=== PATIENT | male | born 1960 | race Caucasian/White ===

== ENCOUNTER 2020-11-16 15:38 | Inpatient (IN) ==
[2020-11-16] MEDS ORDERED: dexAMETHasone**PF** 10 MG/ML VIAL IV ONE (16:32)
[2020-11-16 16:45] LABS: Hematocrit (blood only) 39.5 % (42-52); Hemoglobin 14.2 g/dL (14.0-18.0); Mean Corpuscular Hemoglobin 31.3 pg (25-34); Mean Corpuscular Hgb Conc 35.9 g/dL (32-36); Platelet Count 162 K/uL (130-400); RDW Coefficient of Variation 13.1 % (11.5-14.5); RDW Standard Deviation 41.8 fL (36.4-46.3); Red Blood Count 4.54 M/uL (4.7-6.1)
[2020-11-16] MEDS ORDERED: SODIUM CHLORIDE 0.9% 1000ML 1,000 ML IV SCH (16:45)
[2020-11-16 16:56] LABS: D Dimer 270 ug/L FEU (0-500)
[2020-11-16 17:05] LABS: Alanine Aminotransferase 111 U/L (12-78); Albumin Globulin Ratio 0.8 (0.9-2); Alkaline Phosphatase 128 U/L (45-117); Aspartate Aminotransferase 112 U/L (15-37); BUN Creatinine Ratio 22.6 (10-20); Bilirubin,Total 0.5 mg/dl (0.2-1); Blood Urea Nitrogen 24 mg/dl (7-18); Calcium 8.4 mg/dl (8.5-10.1); Carbon Dioxide 18 mmol/L (21-32); Chloride 105 mmol/L (98-107); Creatinine Clr Calc Pharmacy 94.6 ml/min; Est GFR (African American) 88.4 ml/min; Est GFR (Non-African American) 76.2 ml/min; Globulin 3.8 gm/dl (2.5-4.0); Glucose 314 mg/dl (70-99); Potassium 4.7 mmol/L (3.5-5.1); Sodium 131 mmol/L (136-145); Total Protein 6.8 gm/dl (6.4-8.2); Troponin I < 0.015 ng/ml (0-0.045)
[2020-11-16 17:12] LABS: Immature Granulocytes # (auto) 0.03 K/uL (0.00-0.02); Immature Granulocytes % (auto) 0.6 %; Lymphocytes # (auto) 0.64 K/uL (1.2-3.4); Lymphocytes % (auto) 13.1 %; Monocytes # (auto) 0.76 K/uL (0.11-0.59); Monocytes % (auto) 15.5 %; Neutrophils # (auto) 3.47 K/uL (1.4-6.5); Neutrophils % (auto) 70.8 %; RBC Morphology Unremarkable
--- NOTE | 2020-11-16 17:42 | XRay Report ---
XR chest 1V portable CLINICAL HISTORY: Dyspnea COMPARISON STUDY: No previous studies for comparison. FINDINGS: Lung volumes are mildly diminished. There is no pneumothorax or pleural effusion. Mild to m oderate bilateral airspace opacities are present. There are postoperative findings within the left sh oulder. Cardiac size is at the upper limits of normal. Pulmonary vascularity is normal. IMPRESSION: Mild to moderate bilateral airspace opacities which favor an infectious process such as viral pneumonia. Radiographic follow-up to ensure resolution is recommended. ACT 112: Negative or not required by law. Electronically signed by: Sincere Carbone M.D. 11/16/2020 5:40 PM
[2020-11-16] MEDS ORDERED: NovoLIN-R INSULIN PER UNIT CHARGE IV STA (18:09)
--- NOTE | 2020-11-16 18:42 | History & Physical Report ---
Date of Service November 16, 2020 Assessment & Plan (1) COVID-19: Plan: Please refer to attending addendum and physical exam as I did not to see the patient in person due to COVID-19 positive. I interviewed the patient via phone. - COVID-19 positive, symptomatic since 11/08, tested positive as outpatient on 11/12 - Procalcitonin not obtained - Lymphocytes 0.64, neutrophils 3.47 - CXR reviewed: Mild to moderate bilateral airspace opacities which favor an infectious process such as viral pneumonia. Radiographic follow-up to ensure resolution is recommended. - O2 sats 94% on 2 L via NC, & on room air - WBC - Decadron 6 mg IV daily. If pt needs convalescent plasma then will ask attending to obtain consent. Does not qualify for remdesivir use as he is on symptom day #8. - Was not vaccinated, but plans on obtaining vaccination after 90 days post hospitalization (2) Pneumonia due to 2019 novel coronavirus: Plan: -As above (3) DM II (diabetes mellitus, type II), controlled: Plan: -Check A1C with a.m. labs, glucose over 300 upon admission, holding [employer] glimepiride and Metformin -ISS with Accu-Cheks ACHS -Heart healthy/diabetic diet -Glycemic pharmacy consulted with use of Decadron for COVID-19 pneumonia as above (4) HTN (hypertension): Plan: -Continue ramipril, baby aspirin (5) Elevated transaminase level: Plan: -Elevated liver functions, AST = 112, ALT = 111, alk phos = 128, follow with a.m. labs, likely secondary to acute inflammatory response (6) Hyponatremia: Plan: - 131 on admission, follow with repeat labs at 2200, will order NSS at 125 ml/hr for now DVT PPx: - teds, scds CODE: Full code Dispo: From home, likely to remain in the hospital x 2 days History of Present Illness Primary Care Provider: Quentin Andrea MD This is a 60 yo M with PMHx of HTN, HLD, DM II who presents with severe cough, fever with max temp of 101, wheezing, shortness of breath which has progressively gotten worse. Pt reports he felt sick last night, and did not go to work on Wednesday. He had swab at an acute care clinic last Wednesday night and found positive on Wednesday morning. Since then he has used mucinex, tylenol, and didn't find any relief. He reports having poor appetite, and had some nausea and vomiting on Wednesday. He also reports having diarrhea x 2 days. He is drinking fluids without any difficulty. He reports did not get vaccinated because of all the information on the new and felt hesitant. He is unsure where he caught the virus from. Pt denies recent travel. His is currently symptomatic as well, and here in the ER for admission as well. Allergies Allergy/AdvReac Type Severity Reaction Status Date / Time No Known Allergies Allergy Unverified 11/16/20 17:46 Home Medications Medication Instructions Recorded Confirmed Type aspirin 81 mg tablet,delayed 81 mg PO DAILY 11/16/20 11/16/20 History release glimepiride 2 mg tablet 2 mg PO DAILY 11/16/20 11/16/20 History metformin 500 mg tablet 500 mg PO BID 11/16/20 11/16/20 History ramipril 5 mg capsule 5 mg PO DAILY 11/16/20 11/16/20 History Past Med/Surg History Social History Smoking Status: Never smoker Review of Systems Review of Systems: Constitutional: +fever, sweats and chills Eyes: No diplopia, no worsening or blurred vision ENT: normal hearing, no trouble swallowing Respiratory: + dry cough, wheezing, dyspnea at rest and on exertion Cardiovascular: No chest pain, tightness or palpitations Abdomen: No pain, + nausea, + vomiting, +diarrhea, no constipation Musculoskeletal: No joint pain, calf pain, swelling Neurologic: No weakness, numbness/tingling, or balance problems Psychiatric: No anxiety or depression Skin: No rash or itch Physical Exam Physical Exam: Please refer to attending exam as I did not see the patient due to being positive for COVID-19. Results & Data Results & Data ([facility]) Vital Signs (Past 12 Hours) Vital Signs Temp Pulse Pulse Resp BP BP Pulse Ox 11/16/20 17:24 81 20 160/83 H 94 11/16/20 16:35 87 16 93 11/16/20 15:59 37.3 C 103 H 16 163/88 H 93 Diagnostic Findings Chest X-Ray 11/16/20 16:32 XR chest 1V portable CLINICAL HISTORY: Dyspnea COMPARISON STUDY: No previous studies for comparison. FINDINGS: Lung volumes are mildly diminished. There is no pneumothorax or pleural effusion. Mild to moderate bilateral airspace opacities are present. There are postoperative findings within the left shoulder. Cardiac size is at the upper limits of normal. Pulmonary vascularity is normal. IMPRESSION: Mild to moderate bilateral airspace opacities which favor an infectious process such as viral pneumonia. Radiographic follow-up to ensure resolution is recommended. ACT 112: Negative or not required by law. Electronically signed by: Sincere Carbone M.D. 11/16/2020 5:40 PM ECG Additional Comments: 16-NOV-2020 16:48:47 [facility]-EDSTAT ROUTINE RETRIEVAL Poor data quality, interpretation may be adversely affected Normal sinus rhythm Normal ECG When compared with ECG of 03-AUG-2007 10:53, Premature atrial complexes are no longer Present Vent. rate has increased BY 33 BPM 25mm/s 10mm/mV 150Hz 9.0.9 12SL 241 ALFREDA: 11 Referred by: REFERRED SELF Unconfirmed Vent. rate 95 BPM NM interval 206 ms QRS duration 98 ms QT/QTc 332/417 ms Code Status & VTE Plan Code Status Full code - discussed with the patient at bedside Supervising Physician Co-Signing Physician Notes 60-year-old male with past medical history of hypertension, hyperlipidemia, diabetes type 2 on glimepiride and Metformin came in 11/16 for intractable coughing and worsening shortness of breath associated with diarrhea for few days, cough with whitish sputum, fever ranging from 98-101.5F. He was having symptoms since November 08, tested positive for Covid on last Wednesday. Is being managed for Covid pneumonia and hyperglycemia secondary to diabetes. Continue with dexamethasone and will put him on remdesivir. We will continue to monitor him clinically and lab le. Upon examination: GENERAL: Alert and oriented x3. NAD, on 2L. HEENT: No pallor, no icterus. Pupils equal, round and reactive to light. Oral mucosa moist. NECK: No JVD, no neck masses. HEART: S1 and S2 heard. Regular rate and rhythm. No murmur, no gallop. RESPIRATORY SYSTEM: Normal AP diameter. No accessory muscle use. No wheezing, no crackles. ABDOMEN: Soft, bowel sounds present, nontender, no distention. CENTRAL NERVOUS SYSTEM: Alert and oriented x3. No facial droop. Speech is clear. Obeys simple commands. Moves extremities. EXTREMITIES: No edema, no erythema seen. I have seen and examined the patient and have discussed the case with the provider above. I agree with the assessment and plan as stated.
--- NOTE | 2020-11-16 18:46 | Emergency Department Note ---
Impression & Plan COVID-19, Pneumonia due to 2019 novel coronavirus, Hyperglycemia, Acute dyspnea ED Provider Note INFORMANT: Patient ED PROVIDER(S): Christian Stephens MD CHIEF COMPLAINT: Shortness of breath PLAN: Disposition: Admitted Condition: Good Outpatient prescription management: none Referral: None MEDICAL DECISION MAKING: Patient presented because of shortness of breath. He was diagnosed COVID-19 positive as an outpatient. He had borderline low oxygen saturation but was below 94%. He was placed on supplemental oxygen and given IV fluids and IV Decadron. Chest x-ray was concerning for Covid 19 pneumonia. Confirmation Covid test was positive. Patient was hyperglycemic and was treated with IV insulin. Patient would benefit from further treatment in the hospital. [facility] Patient was evaluated in the ER for further management. D-dimer, troponin and ECG were unremarkable. Triage Nursing notes reviewed and agree them. Vital Signs: reviewed and remarkable for borderline low oxygen Differential diagnosis: Reactive airway disease, pneumonia, pneumothorax, COPD, CHF, infections, cardiac ischemia, pulmonary embolism, musculoskeletal, gastrointestinal, as well as other pathologies. Diagnostics interpreted by me: ECG: Twelve-lead ECG reveals normal sinus rhythm at [address] elevation or depression. No PACs or PVCs. Normal axis QRS. Cardiac Monitoring: Cardiac monitoring ordered by me: The patient was placed on continuous cardiac monitoring and observed. It revealed a normal sinus rhythm at 68 beats per minute without ectopy or evidence of dysrhythmia. Imaging studies: Chest x-ray concerning for Covid pneumonia. I refer you to the EMR for further details. HPI: The patient is a 60 year old male who presents to the Emergency Room with complaints of shortness of breath and dyspnea. This started November 08 and is worsening this week. The patient also notes the following associated symptoms, mild nausea, feeling dehydrated, cough. The patient has found no relieving factors. Current pain is rated as 0/10. Patient had an outpatient test performed for COVID-19 and was positive. His is sick with similar sym ptoms. She became sick on November 09. Patient and are unimmunized. Pt denies LOC, headache, fevers, chills, diaphoresis, visual changes, neck pain, chest pain, breathing difficulties, nausea, vomiting, abdominal pain, back pain, melena, hematochezia, urinary symptoms, numbness, weakness, lymphadenopathy, rash, or other complaints. ROS: See above HPI for pertinent positives & negatives. A total of 10 systems reviewed and were otherwise negative. PAST MEDICAL HISTORY:See Below , diabetes PAST SURGICAL HISTORY:See Below, FAMILY HISTORY:See Below SOCIAL HISTORY:See Below, HOME MEDICATIONS:See Below ALLERGIES:See Below VITALS:See Below PHYSICAL EXAMINATION: GENERAL: Awake, alert, mildly dyspneic-appearing, in no distress HENT: Normocephalic, atraumatic. Oropharynx unremarkable. EYES: Normal conjunctiva. Sclera non-icteric. NECK: Inspection normal. Non-tender. Supple. No nuchal rigidity. FROM. No masses. RESPIRATORY: Clear to auscultation. No wheezes. No rales. Increased respiratory effort. CARDIAC: Normal rate. Normal rhythm. No murmurs. No rubs. Extremities warm and well perfused. Pulses equal. No JVD. GI: Soft, non-distended. No tenderness to palpation. No rebound or guarding. No masses. RECTAL: Deferred. MUSCULOSKELETAL: Atraumatic. Chest examination reveals no tenderness. The back is symmetrical on inspection without obvious abnormality. There is no CVA tenderness to palpation. No joint edema. LOWER EXTREMITIES: Calves are equal size bilaterally and non-tender. No edema. No discoloration. NEURO: Normal sensorium. No sensory or motor deficits noted. SKIN: No rash or jaundice noted. Christian Stephens MD Past Med/Surg History Social History Smoking Status: Never smoker Allergies Allergies Allergy/AdvReac Type Severity Reaction Status Date / Time No Known Allergies Allergy Unverified 11/16/20 17:46 Home Meds Home Medications Medication Instructions Recorded Confirmed aspirin 81 mg tablet,delayed 81 mg PO DAILY 11/16/20 11/16/20 release glimepiride 2 mg tablet 2 mg PO DAILY 11/16/20 11/16/20 metformin 500 mg tablet 500 mg PO BID 11/16/20 11/16/20 ramipril 5 mg capsule 5 mg PO DAILY 11/16/20 11/16/20 Results & Data (ED) Vital Signs Vital Signs - 24 hr 11/16/20 15:59 11/16/20 16:35 11/16/20 17:24 Temperature 37.3 C Temperature Source Oral Pulse Rate 103 H 87 Pulse Rate [Radial] 81 Respiratory Rate 16 16 20 Respiratory Depth Shallow Respiratory Pattern Tachypnea Blood Pressure 163/88 H Blood Pressure [Left Arm] 160/83 H Blood Pressure Mean 113 Blood Pressure Mean [Left Arm] 108 Pulse Oximetry 93 93 94 Oxygen Delivery Method Room Air Room Air Nasal Cannula Oxygen Flow Rate 2 Sepsis New/Unexplained Change in Mental Status No Sepsis Action Taken by Nursing No Action Required 11/16/20 22:24 Temperature Temperature Source Pulse Rate Pulse Rate [Radial] 68 Respiratory Rate 20 Respiratory Depth Respiratory Pattern Blood Pressure Blood Pressure [Left Arm] 146/70 H Blood Pressure Mean Blood Pressure Mean [Left Arm] 95 Pulse Oximetry 92 Oxygen Delivery Method Room Air Oxygen Flow Rate Sepsis New/Unexplained Change in Mental Status Sepsis Action Taken by Nursing Laboratory Data Result diagrams: 11/16/20 16:00 11/16/20 16:00 Lab Results 11/16/20 11/16/20 11/16/20 Range/Units 16:00 16:00 16:00 WBC 4.90 (4.8-10.8) K/uL RBC 4.54 L (4.7-6.1) M/uL Hgb 14.2 (14.0-18.0) g/dL Hct 39.5 L (42-52) % MCV 87.0 (80-100) fL MCH 31.3 (25-34) pg MCHC 35.9 (32-36) g/dL RDW Std Deviation 41.8 (36.4-46.3) fL RDW Coeff of Topher 13.1 (11.5-14.5) % Plt Count 162 (130-400) K/uL MPV 11.0 H (7.4-10.4) fL Immature Gran % (Auto) 0.6 % Neut % (Auto) 70.8 % Lymph % (Auto) 13.1 % [place] % (Auto) 15.5 % Eos % (Auto) 0.0 % Baso % (Auto) 0.0 % Neut # (Auto) 3.47 (1.4-6.5) K/uL Lymph # (Auto) 0.64 L (1.2-3.4) K/uL [place] # (Auto) 0.76 H (0.11-0.59) K/uL Eos # (Auto) 0.00 (0-0.5) K/uL Baso # (Auto) 0.00 (0-0.2) K/uL Immature Gran # (Auto) 0.03 H (0.00-0.02) K/uL RBC Morphology Unremarkable D-Dimer 270 (0-500) ug/L FEU Sodium 131 L (136-145) mmol/L Potassium 4.7 (3.5-5.1) mmol/L Chloride 105 (98-107) mmol/L Carbon Dioxide 18 L (21-32) mmol/L Anion Gap 8.0 (3-11) BUN 24 H (7-18) mg/dl Creatinine 1.05 (0.6-1.4) mg/dl Est Cr Clr Drug Dosing 94.6 ml/min Est GFR ( Amer) 88.4 ml/min Est GFR (Non-Af Amer) 76.2 ml/min BUN/Creatinine Ratio 22.6 H (10-20) Glucose 314 H* (70-99) mg/dl Calcium 8.4 L (8.5-10.1) mg/dl Total Bilirubin 0.5 (0.2-1) mg/dl AST 112 H (15-37) U/L ALT 111 H (12-78) U/L Alkaline Phosphatase 128 H (45-117) U/L Troponin I < 0.015 (0-0.045) ng/ml Total Protein 6.8 (6.4-8.2) gm/dl Albumin 3.0 L (3.4-5.0) gm/dl Globulin 3.8 (2.5-4.0) gm/dl Albumin/Globulin Ratio 0.8 L (0.9-2) Beta-Hydroxybutyric Acd (0.2-2.81) mg/dl COVID-19 Eval Order SARS-CoV-2 (PCR) (Negative) 11/16/20 11/16/20 Range/Units 16:54 16:54 WBC (4.8-10.8) K/uL RBC (4.7-6.1) M/uL Hgb (14.0-18.0) g/dL Hct (42-52) % MCV (80-100) fL MCH (25-34) pg MCHC (32-36) g/dL RDW Std Deviation (36.4-46.3) fL RDW Coeff of Topher (11.5-14.5) % Plt Count (130-400) K/uL MPV (7.4-10.4) fL Immature Gran % (Auto) % Neut % (Auto) % Lymph % (Auto) % [place] % (Auto) % Eos % (Auto) % Baso % (Auto) % Neut # (Auto) (1.4-6.5) K/uL Lymph # (Auto) (1.2-3.4) K/uL [place] # (Auto) (0.11-0.59) K/uL Eos # (Auto) (0-0.5) K/uL Baso # (Auto) (0-0.2) K/uL Immature Gran # (Auto) (0.00-0.02) K/uL RBC Morphology D-Dimer (0-500) ug/L FEU Sodium (136-145) mmol/L Potassium (3.5-5.1) mmol/L Chloride (98-107) mmol/L Carbon Dioxide (21-32) mmol/L Anion Gap (3-11) BUN (7-18) mg/dl Creatinine (0.6-1.4) mg/dl Est Cr Clr Drug Dosing ml/min Est GFR ( Amer) ml/min Est GFR (Non-Af Amer) ml/min BUN/Creatinine Ratio (10-20) Glucose (70-99) mg/dl Calcium (8.5-10.1) mg/dl Total Bilirubin (0.2-1) mg/dl AST (15-37) U/L ALT (12-78) U/L Alkaline Phosphatase (45-117) U/L Troponin I (0-0.045) ng/ml Total Protein (6.4-8.2) gm/dl Albumin (3.4-5.0) gm/dl Globulin (2.5-4.0) gm/dl Albumin/Globulin Ratio (0.9-2) Beta-Hydroxybutyric Acd (0.2-2.81) mg/dl COVID-19 Eval Order Covid19 at [facility] SARS-CoV-2 (PCR) POSITIVE A* (Negative) Administered Medications Discontinued Medications Dexamethasone Sodium Phosphate (DexamethasonePf 10 Mg/Ml Vial) 6 mg IV NOW ONE Stop: 11/16/20 16:33 Last Admin: 11/16/20 17:00 Dose: 6 mg Documented by: [id number] Sodium Chloride (Nss 1000ml) 1,000 mls @ 999 mls/hr IV .Q1H1M ERMELINDA Stop: 11/16/20 17:45 Last Infusion: 11/16/20 18:00 Dose: 0 mls/hr Documented by: [id number] Admin: 11/16/20 17:00 Dose: 999 mls/hr Documented by: [id number] Insulin Human Regular (Novolin-R Insulin Per Unit Charge) 6 units IV NOW STA Stop: 11/16/20 18:10 Last Admin: 11/16/20 18:22 Dose: 6 units Documented by: [id number] Cosigned by: [id number] Imaging Data Radiologist's Impression: Chest X-Ray 11/16/20 16:32 XR chest 1V portable CLINICAL HISTORY: Dyspnea COMPARISON STUDY: No previous studies for comparison. FINDINGS: Lung volumes are mildly diminished. There is no pneumothorax or pleural effusion. Mild to moderate bilateral airspace opacities are present. There are postoperative findings within the left shoulder. Cardiac size is at the upper limits of normal. Pulmonary vascularity is normal. IMPRESSION: Mild to moderate bilateral airspace opacities which favor an infectious process such as viral pneumonia. Radiographic follow-up to ensure resolution is recommended. ACT 112: Negative or not required by law. Electronically signed by: Sincere Carbone M.D. 11/16/2020 5:40 PM Discharge Plan Visit Data Chief Complaint: Shortness of Breath/Dyspnea ED Provider: Christian Stephens Discharge Problem: COVID-19, Pneumonia due to 2019 novel coronavirus, Hyperglycemia, Acute dyspnea Forms Stand Alone Forms: [facility] Prescriptions Prescriptions: No Action metformin 500 mg tablet 500 mg PO BID RF: 0 aspirin 81 mg tablet,delayed release (DR/EC) 81 mg PO DAILY RF: 0 glimepiride 2 mg tablet 2 mg PO DAILY RF: 0 ramipril 5 mg capsule 5 mg PO DAILY RF: 0 Referrals Referrals: Quentin Andrea MD [Primary Care Provider] -
[2020-11-16] MEDS ORDERED: REMDESIVIR 200 MG in SODIUM CHLORIDE 0.9% 210 ML IV STA (20:04)
[2020-11-16] MEDS ORDERED: SODIUM CHLORIDE 0.9% 10ML FLUSH IV SCH (20:15)
[2020-11-16] MEDS ORDERED: GLUCOSE 10 TABS/TUBE PO PRN (23:48)
[2020-11-16] MEDS ORDERED: ACETAMINOPHEN 325 MG TAB PO PRN (23:48)
[2020-11-16] MEDS ORDERED: DEXTROSE 50% 50 ML SYRINGE IV PRN (23:48)
[2020-11-16] MEDS ORDERED: PHARMACY GLYCEMIC MGMT CONSULT PRN (23:48)
[2020-11-16] MEDS ORDERED: GLUCAGON FOR INJ 1 MG VIAL SQ PRN (23:48)
[2020-11-16] MEDS ORDERED: GLUCOSE 40% GEL 15 GM TUBE PO PRN (23:48)
[2020-11-16] MEDS ORDERED: ONDANSETRON INJ 2 MG/ML 2 ML VIAL IV PRN (23:48)
[2020-11-17] MEDS: ALBUT/IPRATROP 3MG/0.5MG NEB 3 ML VIAL NEB SCH ×7 (00:18→23:17)
[2020-11-17] MEDS ORDERED: INSULIN HUMAN REGULAR PER UNIT 10 UNITS in SYRINGE 9.9 ML IV ONE ×2 (01:00→04:30)
[2020-11-17] MEDS ORDERED: INSULIN GLARGINE SOLOSTAR 100 UNITS/ML 3 ML PEN SC ONE (01:00)
[2020-11-17] MEDS: INSULIN ASPART 100 UNITS/ML 3 ML PEN SC SCH ×6 (01:01→21:30)
[2020-11-17] MEDS: guaiFENesin 600 MG TABCR PO SCH ×3 (01:13→21:14)
[2020-11-17] MEDS: HEPARIN SOD 5,000 UNIT/0.5 ML VIAL SQ SCH ×3 (01:13→21:16)
[2020-11-17] MEDS: SODIUM CHLORIDE 0.9% 1000ML 1,000 ML IV SCH ×2 (01:23→09:00)
[2020-11-17] MEDS ORDERED: INSULIN ASPART 100 UNITS/ML 3 ML PEN SC SCH ×2 (04:00→11:30)
[2020-11-17] MEDS ORDERED: STAT IV Infusion **Titration per Protocol STA (08:11)
[2020-11-17] MEDS ORDERED: INSULIN PROTOCOL GOAL RANGE ONE (08:11)
[2020-11-17] MEDS ORDERED: INSULIN HUMAN REGULAR IV BOLUS 10 UNITS in SYRINGE 0 ML IV ONE (08:30)
[2020-11-17] MEDS ORDERED: INSULIN REGULAR 250 UNITS in SODIUM CHLORIDE 0.9% 247.5 ML IV SCH (08:30)
[2020-11-17 08:36] LABS: Appearance Urine Clear (Clear); Bacteria Urine Automated Negative (Negative); Bilirubin Urine Negative (Negative); Blood Urine Negative (Negative); Color Urine Yellow; Epithelial Cell Urine Auto 0-5 /lpf (0-5); Glucose Urine UA 3+ (Negative); Ketones Urine 1+ (Negative); Leukocyte Esterase Urine Negative (Negative); Nitrite Urine Negative (Negative); Protein Urine 1+ (Negative); RBC Urine Automated 0-4 /hpf (0-4); Specific Gravity Urine 1.029 (1.000-1.030); Urobilinogen Urine Negative (Negative)
[2020-11-17 08:39] LABS: Hematocrit (blood only) 38.7 % (42-52); Hemoglobin 13.7 g/dL (14.0-18.0); Mean Corpuscular Hemoglobin 30.8 pg (25-34); Mean Corpuscular Hgb Conc 35.4 g/dL (32-36); Platelet Count 179 K/uL (130-400); RDW Coefficient of Variation 13.2 % (11.5-14.5); RDW Standard Deviation 42.3 fL (36.4-46.3); Red Blood Count 4.45 M/uL (4.7-6.1); White Blood Count 3.26 K/uL (4.8-10.8)
[2020-11-17] MEDS: INSULIN HUMAN NPH SC SCH (09:02)
[2020-11-17] MEDS: ASPIRIN 81 MG ECTAB PO SCH (09:13)
[2020-11-17] MEDS: ENALAPRIL MALEATE 10 MG TAB PO SCH (09:13)
[2020-11-17] MEDS: BENZONATATE 100 MG CAPSULE PO SCH ×3 (09:13→21:14)
[2020-11-17 09:16] LABS: Albumin Level 2.5 gm/dl (3.4-5.0); BUN Creatinine Ratio 23.3 (10-20); Bilirubin Direct 0.2 mg/dl (0-0.2); Calcium 8.3 mg/dl (8.5-10.1); Creatinine Clr Calc Pharmacy 87.3 ml/min; Est GFR (African American) 78.3 ml/min; Est GFR (Non-African American) 67.6 ml/min; Magnesium 1.9 mg/dl (1.8-2.4); Potassium 3.9 mmol/L (3.5-5.1)
[2020-11-17] MEDS: dexAMETHasone 6 MG in SYRINGE 0 ML IV SCH (09:22)
[2020-11-17 09:26] LABS: Albumin Globulin Ratio 0.6 (0.9-2); Bilirubin,Total 0.5 mg/dl (0.2-1); Phosphorus 2.5 mg/dl (2.5-4.9); Total Protein 6.5 gm/dl (6.4-8.2)
--- NOTE | 2020-11-17 10:18 | Pharmacy Report ---
Pharmacy Glycemic Short Note 2 - Date of Service November 17, 2020 - Glycemic Short BSG Results (Last 24 hours): 11/16/20 11/17/20 11/17/20 16:00 00:22 00:24 Glucose 314 H* POC Glucose 346 H* 361 H* 11/17/20 11/17/20 11/17/20 04:17 04:19 07:27 Glucose POC Glucose 400 H* 390 H* 339 H* 11/17/20 08:28 Glucose 285 H POC Glucose OUTPATIENT ANTIDIABETIC REGIMEN: * Amaryl * A1c pending 11/17/20 ASSESSMENT: * 60yo T2DM male with unknown degree of outpatient control - A1c pending. * Pt is maintained on Amarayl monotherapy - will hold this for admission and use SQ basal bolus insulin regimen * Pt with SEVERE hyperglycemia on admission secondary to illness (possibly poor outpatient control?), and steroids (dexamethasone 6mg IV Q24hrs for COVID). Pt received multiple IV bolus of insulin, SQ novolog boluses, and Lantus 30 units last night. Pt still with SEVERE hyperglycemia this AM. * Will start weight based NPH to cover DXM and add an IV insulin infusion for severe hyperglycemia. * Will stop IV insulin infusion when BSG < 180 x 2 AND IV insulin infusion rate < 1 unit/hr; infusion rates should decrease as SQ insulin kicks in PLAN FOR INPATIENT GLYCEMIC CONTROL: * Hold outpatient oral diabetes medications * IV insulin infusion per protocol for severe hyperglycemia * Will start with weight based dosing and titrate based on insulin infusion protocol * start with 0.1 unit/kg bolus + infusion rate at 0.1 units/kg/hr * Goal range 140-180 mg/dl * Basal insulin * increase Lantus 40 units SQ HS * Bolus insulin: will start CF when drip DC. Use insulin to CHO ratio of 4 while on infusion * NovoLog per scale ACHS or Q6hrs while NPO * Goal Range: Low 110 mg/dL - High 140 mg/dL * Correction Factor: 10 mg/dL/unit * Nutritional / Prandial insulin per carb ratio of 1 unit per 4 grams CHO consumed PLAN FOR DISCHARGE: * TBD based on A1c
--- NOTE | 2020-11-17 14:06 | Hospitalist Progress Note ---
Date of Service November 17, 2020 Assessment & Plan (1) COVID-19: (2) Elevated transaminase level: (3) Acute dyspnea: Plan: 60-year-old male with past medical history of hypertension, hyperlipidemia, diabetes type 2 on glimepiride and Metformin came in 11/16 for intractable coughing and worsening shortness of breath associated with diarrhea for few days, cough with whitish sputum, fever ranging from 98-101.5F at home. He was having symptoms since November 08, tested positive for Covid on 11/13. #. COVID-19 #. Hypoxia Upon presentation, he was saturating 90-91% on room air, 94% on 2 L Procalcitonin negative, admitting chest x-ray suggestive of bilateral pneumonia Bibasilar crackles noted on auscultation, continue to monitor, will stop IV fluids Patient started on Decadron 11/16 and remdesivir 11/16 Continue with Covid meds/supportive care/incentive spirometry/antitussives/proning as able Will add guaifenesin if cough not being controlled Continue to monitor clinically and lab le. #. Hyperglycemiastable to control #. 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 Glycemic pharmacy on board: Difficult to control his blood glucose level, patient currently on insulin infusion protocol Continue to monitor #. Hypertension Continue ramipril, baby aspirin #. Elevated transferase levels AST and ALT in 110s, stable/slightly better than yesterday We will continue to monitor #. Mild hyponatremia at presentation: Resolved DVT PPx: - teds, scds, heparin CODE: Full code Admission and Anticipated Discharge Date Admission Date: November 16, 2020 Subjective Patient was lying semiupright in bed, on 3 L nasal cannula oxygen, NAD, no issues overnight. Patient's reports feeling similar compared to yesterday. But upon my examination he was coughing less than yesterday at bedside. He is eating good. He has had 2 diarrhea-like bowel movement since admission. Denies worsening shortness of breath/cough. Denies other review of symptoms. Physical Exam Physical Exam: GENERAL: Alert and oriented x3. NAD, on 3 L. HEENT: No pallor, no icterus. Pupils equal, round and reactive to light. Oral mucosa moist. NECK: No JVD, no neck masses. HEART: S1 and S2 heard. Regular rate and rhythm. No murmur, no gallop. RESPIRATORY SYSTEM: Normal AP diameter. No accessory muscle use. No wheezing, bibasal crackles. ABDOMEN: Soft, bowel sounds present, nontender, no distention. CENTRAL NERVOUS SYSTEM: Alert and oriented x3. No facial droop. Speech is clear. Obeys simple commands. Moves extremities. EXTREMITIES: No edema, no erythema seen. Results & Data Results & Data ([facility]) Vital Signs (Past 12 Hours) Vital Signs Temp Pulse Pulse Resp BP Pulse Ox 11/17/20 11:30 93 11/17/20 11:26 88 L 11/17/20 11:15 36.6 C 76 18 133/65 88 L 11/17/20 11:03 83 19 89 L 11/17/20 08:16 36.5 C 66 18 130/77 93 11/17/20 07:40 62 24 91 11/17/20 07:00 67 11/17/20 04:00 36.7 C 77 18 126/73 89 L 11/17/20 03:38 74 16 91
[2020-11-17] MEDS ORDERED: DC IV INSULIN INFUSION 1 EA DEVI SCH (16:15)
[2020-11-17] MEDS: REMDESIVIR 100 MG in SODIUM CHLORIDE 0.9% 230 ML IV SCH (19:51)
[2020-11-17] MEDS ORDERED: INSULIN GLARGINE SOLOSTAR 100 UNITS/ML 3 ML PEN SC SCH (21:00)
[2020-11-17] MEDS: SODIUM CHLORIDE 0.9% 10ML FLUSH IV SCH (21:13)
[2020-11-18] MEDS: ALBUT/IPRATROP 3MG/0.5MG NEB 3 ML VIAL NEB SCH ×2 (03:25→07:24)
[2020-11-18 07:33] LABS: Estimated Average Glucose 249 mg/dl; Hemoglobin A1C 10.3 % (4.5-5.6)
[2020-11-18 08:10] LABS: Hematocrit (blood only) 36.4 % (42-52); Hemoglobin 12.6 g/dL (14.0-18.0); Mean Corpuscular Hemoglobin 30.9 pg (25-34); Mean Corpuscular Hgb Conc 34.6 g/dL (32-36); Mean Corpuscular Volume 89.2 fL (80-100); Mean Platelet Volume 10.1 fL (7.4-10.4); Platelet Count 220 K/uL (130-400); RDW Coefficient of Variation 13.6 % (11.5-14.5); RDW Standard Deviation 45.2 fL (36.4-46.3); Red Blood Count 4.08 M/uL (4.7-6.1); White Blood Count 11.32 K/uL (4.8-10.8)
[2020-11-18] MEDS: INSULIN ASPART 100 UNITS/ML 3 ML PEN SC SCH ×4 (08:22→21:52)
[2020-11-18] MEDS: INSULIN HUMAN NPH SC SCH (08:23)
[2020-11-18 08:43] LABS: Albumin Level 2.5 gm/dl (3.4-5.0); Calcium 8.1 mg/dl (8.5-10.1); Creatinine Clr Calc Pharmacy 106.6 ml/min; Est GFR (Non-African American) 93.2 ml/min; Magnesium 1.8 mg/dl (1.8-2.4); Potassium 4.3 mmol/L (3.5-5.1)
[2020-11-18 08:46] LABS: Albumin Globulin Ratio 0.7 (0.9-2); Bilirubin,Total 0.4 mg/dl (0.2-1); Globulin 3.4 gm/dl (2.5-4.0); Total Protein 5.9 gm/dl (6.4-8.2)
[2020-11-18] MEDS: BENZONATATE 100 MG CAPSULE PO SCH ×3 (08:47→20:24)
[2020-11-18] MEDS: ENALAPRIL MALEATE 10 MG TAB PO SCH (08:47)
[2020-11-18] MEDS: guaiFENesin 600 MG TABCR PO SCH ×2 (08:47→20:24)
[2020-11-18] MEDS: ASPIRIN 81 MG ECTAB PO SCH (08:47)
[2020-11-18] MEDS: dexAMETHasone 6 MG in SYRINGE 0 ML IV SCH (08:48)
[2020-11-18] MEDS: HEPARIN SOD 5,000 UNIT/0.5 ML VIAL SQ SCH ×2 (08:48→20:24)
--- NOTE | 2020-11-18 11:02 | XRay Report ---
XR chest 1V portable CLINICAL HISTORY: covid pt, wbc trending up COMPARISON STUDY: Chest radiograph November 16, 2020. FINDINGS: Lung volumes are normal. There is no pneumothorax or pleural effusion. Cardiac size is norm al. No evidence for pulmonary edema. There has been slight progression of bilateral airspace opacitie s. IMPRESSION: Slight progression of moderate bilateral airspace opacities consistent with viral pneumo jorge l. ACT 112: Negative or not required by law. Electronically signed by: Sincere Carbone M.D. 11/18/2020 11:01 AM
--- NOTE | 2020-11-18 13:15 | Pharmacy Report ---
Pharmacy Glycemic Short Note 2 - Date of Service November 18, 2020 - Glycemic Short BSG Results (Last 24 hours): 11/17/20 11/17/20 11/17/20 13:05 14:12 15:13 Glucose POC Glucose 229 H 178 H 143 H 11/17/20 11/17/20 11/18/20 16:10 19:37 07:43 Glucose POC Glucose 131 H 146 H 278 H 11/18/20 11/18/20 07:44 11:57 Glucose 269 H POC Glucose 271 H OUTPATIENT ANTIDIABETIC REGIMEN: * Amaryl * HbA1c: 10.3% (11/17/20) ASSESSMENT: 11/18: * BSGs trended down nicely yesterday following insulin drip discontinuation * BSGs elevated today, 278 and 271 mg/dL * 0.4 unit/kg NPH given with IV dexamethasone this morning * Will tighten Novolog parameters 11/17: * 60yo T2DM male with unknown degree of outpatient control - A1c pending. * Pt is maintained on Amarayl monotherapy - will hold this for admission and use SQ basal bolus insulin regimen * Pt with SEVERE hyperglycemia on admission secondary to illness (possibly poor outpatient control?), and steroids (dexamethasone 6mg IV Q24hrs for COVID). Pt received multiple IV bolus of insulin, SQ novolog boluses, and Lantus 30 units last night. Pt still with SEVERE hyperglycemia this AM. * Will start weight based NPH to cover DXM and add an IV insulin infusion for severe hyperglycemia. * Will stop IV insulin infusion when BSG < 180 x 2 AND IV insulin infusion rate < 1 unit/hr; infusion rates should decrease as SQ insulin kicks in PLAN FOR INPATIENT GLYCEMIC CONTROL: * Hold outpatient oral diabetes medications * Basal insulin * NPH 40 units SC daily (0.4 unit/kg) with IV dexamethasone * increase Lantus 40 units SQ daily - will give at dinnertime this evening * Bolus insulin: will start CF when drip DC. Use insulin to CHO ratio of 4 while on infusion * NovoLog per scale ACHS or Q6hrs while NPO * Goal Range: Low 110 mg/dL - High 140 mg/dL * Correction Factor: 8 mg/dL/unit * Nutritional / Prandial insulin per carb ratio of 1 unit per 2 grams CHO consumed PLAN FOR DISCHARGE: * HbA1c of 10.3% suggests poor outpatient glycemic control * A1c is greater than or equal to 10% consider triple therapy with metformin + basal insulin + (GLP1-RA OR prandial insulin). * Metformin XR 500mg PO daily with evening meal. Typically the XR formulation of metformin is better tolerated than the immediate release formulation. Continue to titrate metformin dosing upwards as recommended. Dosage increases should be made in increments of 500 mg weekly, up to 2,000 mg/day PO, given in divided doses. * B12 supplementation may be necessary with terminal carman metformin * Patient will require insulin at discharge: doses to be determined
[2020-11-18] MEDS ORDERED: INSULIN GLARGINE SOLOSTAR 100 UNITS/ML 3 ML PEN SC SCH (17:30)
--- NOTE | 2020-11-18 17:37 | Hospitalist Progress Note ---
Date of Service November 18, 2020 Assessment & Plan (1) COVID-19: (2) Elevated transaminase level: (3) Acute dyspnea: Plan: 60-year-old male with past medical history of hypertension, hyperlipidemia, diabetes type 2 on glimepiride and Metformin came in 11/16 for intractable coughing and worsening shortness of breath associated with diarrhea for few days, cough with whitish sputum, fever ranging from 98-101.5F at home. He was having symptoms since November 08, tested positive for Covid on 11/13. #. COVID-19 #. Hypoxia Upon presentation, he was saturating 90-91% on room air, 94% on 2 L Procalcitonin negative, admitting chest x-ray suggestive of bilateral pneumonia Bibasilar crackles seems to improve but chest x-ray shows slight progression of bilateral airspace disease, continue to monitor Patient started on Decadron 11/16 and remdesivir 11/16 Continue with Covid meds/supportive care/incentive spirometry/antitussives/proning as able Will add guaifenesin if cough not being controlled Continue to monitor clinically and lab le. #. Hyperglycemiastable to control #. 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 Glycemic pharmacy on board: Difficult to control his blood glucose level, patient needed insulin infusion protocol Continue to monitor #. Hypertension Continue ramipril, baby aspirin #. Elevated transferase levels AST and ALT in 110s, stable/slightly better than yesterday We will continue to monitor #. Low hemoglobin Admitting hemoglobin 14.2, downtrending to 12.6 today, FOBT negative, iron panel sent Follow-up with results Follow-up daily CBC until hemoglobin stable #. Mild hyponatremia at presentation: Resolved DVT PPx: - teds, scds, heparin CODE: Full code Admission and Anticipated Discharge Date Admission Date: November 16, 2020 Subjective Patient was lying semiupright in bed, on 2 L nasal cannula oxygen, NAD, no issues overnight. Patient's reports feeling better today overall including cough. He is eating good. He has not had any bowel movement today. He was complaining of left lateral thigh pain, most likely due to sleeping on the left side, patient advised to sleep prone as able. Denies worsening shortness of breath/cough. Denies other review of symptoms. Physical Exam Physical Exam: GENERAL: Alert and oriented x3. NAD, on 2 L. HEENT: No pallor, no icterus. Pupils equal, round and reactive to light. Oral mucosa moist. NECK: No JVD, no neck masses. HEART: S1 and S2 heard. Regular rate and rhythm. No murmur, no gallop. RESPIRATORY SYSTEM: Normal AP diameter. No accessory muscle use. No wheezing, bibasal crackles. ABDOMEN: Soft, bowel sounds present, nontender, no distention. CENTRAL NERVOUS SYSTEM: Alert and oriented x3. No facial droop. Speech is clear. Obeys simple commands. Moves extremities. EXTREMITIES: No edema, no erythema seen. Results & Data Results & Data ([facility]) Vital Signs (Past 12 Hours) Vital Signs Temp Pulse Pulse Resp BP Pulse Ox 11/18/20 17:08 36.4 C L 80 20 131/81 11/18/20 15:00 74 11/18/20 11:12 36.4 C L 80 18 128/78 90 11/18/20 09:50 91 11/18/20 07:59 72 11/18/20 07:40 36.4 C L 76 20 138/73 93 11/18/20 07:25 87 18 95
[2020-11-18] MEDS: REMDESIVIR 100 MG in SODIUM CHLORIDE 0.9% 230 ML IV SCH (20:23)
[2020-11-18] MEDS: SODIUM CHLORIDE 0.9% 10ML FLUSH IV SCH (21:45)
[2020-11-18] MEDS ORDERED: traMADol HCL 50 MG TABLET PO STA (22:06)
[2020-11-18 22:49] LABS: D Dimer 250 ug/L FEU (0-500)
[2020-11-19] MEDS: CARBOHYDRATES FOR HYPOGLYCEMIA PO PRN (00:15)
[2020-11-19] MEDS: ALBUT/IPRATROP 3MG/0.5MG NEB 3 ML VIAL NEB PRN ×2 (04:26→21:28)
[2020-11-19] MEDS ORDERED: INSULIN ASPART 100 UNITS/ML 3 ML PEN SC SCH ×2 (07:31)
[2020-11-19] MEDS: INSULIN ASPART 100 UNITS/ML 3 ML PEN SC SCH ×4 (07:34→21:20)
[2020-11-19 08:44] LABS: Hematocrit (blood only) 36.5 % (42-52); Hemoglobin 12.8 g/dL (14.0-18.0); Mean Corpuscular Hemoglobin 30.8 pg (25-34); Mean Corpuscular Hgb Conc 35.1 g/dL (32-36); Mean Platelet Volume 10.4 fL (7.4-10.4); Platelet Count 280 K/uL (130-400); RDW Coefficient of Variation 13.8 % (11.5-14.5); RDW Standard Deviation 43.7 fL (36.4-46.3); Red Blood Count 4.15 M/uL (4.7-6.1); White Blood Count 17.18 K/uL (4.8-10.8)
[2020-11-19] MEDS: ENALAPRIL MALEATE 10 MG TAB PO SCH (08:46)
[2020-11-19] MEDS: ASPIRIN 81 MG ECTAB PO SCH (08:46)
[2020-11-19] MEDS: guaiFENesin 600 MG TABCR PO SCH ×2 (08:46→20:58)
[2020-11-19] MEDS: dexAMETHasone 6 MG in SYRINGE 0 ML IV SCH (08:46)
[2020-11-19] MEDS: BENZONATATE 100 MG CAPSULE PO SCH ×3 (08:46→20:58)
[2020-11-19] MEDS: HEPARIN SOD 5,000 UNIT/0.5 ML VIAL SQ SCH ×2 (08:47→20:58)
--- NOTE | 2020-11-19 08:53 | Pharmacy Report ---
Pharmacy Glycemic Short Note 2 - Date of Service November 19, 2020 - Glycemic Short BSG Results (Last 24 hours): 11/18/20 11/18/20 11/18/20 11:57 16:42 20:05 POC Glucose 271 H 188 H 90 11/19/20 11/19/20 11/19/20 00:11 00:42 08:39 POC Glucose 69 L* 79 135 H OUTPATIENT ANTIDIABETIC REGIMEN: * Amaryl * HbA1c: 10.3% (11/17/20) ASSESSMENT: 11/19: * BSGs yesterday of 278, 271, 188, and 90 mg/dL * Received 152 units of insulin, 40 units of NPH, 40 units of Lantus, and 72 units of prandial/correctional * Given yesterday's trend, will continue tightened parameters in AM, but loosen with lunch, dinner, and HS * Continue 0.4 unit/kg NPH, likely Lantus scale this evening * Lunch BSG elevated, but morning Novolog given late - will not overreact especially since BSGs trended down yesterday evening 11/18: * BSGs trended down nicely yesterday following insulin drip discontinuation * BSGs elevated today, 278 and 271 mg/dL * 0.4 unit/kg NPH given with IV dexamethasone this morning * Will tighten Novolog parameters 11/17: * 60yo T2DM male with unknown degree of outpatient control - A1c pending. * Pt is maintained on Amarayl monotherapy - will hold this for admission and use SQ basal bolus insulin regimen * Pt with SEVERE hyperglycemia on admission secondary to illness (possibly poor outpatient control?), and steroids (dexamethasone 6mg IV Q24hrs for COVID). Pt received multiple IV bolus of insulin, SQ novolog boluses, and Lantus 30 units last night. Pt still with SEVERE hyperglycemia this AM. * Will start weight based NPH to cover DXM and add an IV insulin infusion for severe hyperglycemia. * Will stop IV insulin infusion when BSG < 180 x 2 AND IV insulin infusion rate < 1 unit/hr; infusion rates should decrease as SQ insulin kicks in PLAN FOR INPATIENT GLYCEMIC CONTROL: * Hold outpatient oral diabetes medications * Basal insulin * NPH 40 units SC daily (0.4 unit/kg) with IV dexamethasone * Lantus 35 units today - will move up to lunchtime and then morning tomorrow * Bolus insulin: will start CF when drip DC. Use insulin to CHO ratio of 4 while on infusion * NovoLog per scale ACHS or Q6hrs while NPO * Goal Range: Low 110 mg/dL - High 140 mg/dL * Correction Factor w/ breakfast: 8 mg/dL/unit; correction Factor w/ lunch, dinner, HS: 10 mg/dL/unit * Nutritional / Prandial insulin per carb ratio of 1 unit per 2 grams CHO consumed w/ breakfast, 1 unit per 3 grams CHO consumed w/ lunch, dinner, HS PLAN FOR DISCHARGE: * HbA1c of 10.3% suggests poor outpatient glycemic control * A1c is greater than or equal to 10% consider triple therapy with metformin + basal insulin + (GLP1-RA OR prandial insulin). * Metformin XR 500mg PO daily with evening meal. Typically the XR formulation of metformin is better tolerated than the immediate release formulation. Continue to titrate metformin dosing upwards as recommended. Dosage increases should be made in increments of 500 mg weekly, up to 2,000 mg/day PO, given in divided doses. 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
[2020-11-19 09:09] LABS: BUN Creatinine Ratio 35.2 (10-20); Calcium 8.2 mg/dl (8.5-10.1); Creatinine Clr Calc Pharmacy 101.9 ml/min; Est GFR (African American) 105.1 ml/min; Est GFR (Non-African American) 90.6 ml/min; Magnesium 2.1 mg/dl (1.8-2.4)
[2020-11-19] MEDS ORDERED: FUROSEMIDE 20 MG in SYRINGE 0 ML IV ONE (09:15)
[2020-11-19 09:20] LABS: Ferritin 1570.6 ng/ml (8-388)
[2020-11-19] MEDS: INSULIN HUMAN NPH SC SCH (09:49)
[2020-11-19 10:01] LABS: Vitamin B12 > 2000 pg/ml (193-986)
[2020-11-19] MEDS ORDERED: INSULIN GLARGINE SOLOSTAR 100 UNITS/ML 3 ML PEN SC ONE (12:30)
[2020-11-19] MEDS ORDERED: INSULIN GLARGINE SOLOSTAR 100 UNITS/ML 3 ML PEN SC SCH (17:30)
--- NOTE | 2020-11-19 17:38 | Hospitalist Progress Note ---
Date of Service November 19, 2020 Assessment & Plan (1) COVID-19: (2) Elevated transaminase level: (3) Acute dyspnea: Plan: 60-year-old male with past medical history of hypertension, hyperlipidemia, diabetes type 2 on glimepiride and Metformin came in 11/16 for intractable coughing and worsening shortness of breath associated with diarrhea for few days, cough with whitish sputum, fever ranging from 98-101.5F at home. He was having symptoms since November 08, tested positive for Covid on 11/13. #. COVID-19 #. Hypoxia Upon presentation, he was saturating 90-91% on room air, 94% on 2 L Procalcitonin negative, admitting chest x-ray suggestive of bilateral pneumonia Bibasilar crackles seems to improve but chest x-ray shows slight progression of bilateral airspace disease, continue to monitor Patient started on Decadron 11/16 and remdesivir 11/16 Continue with Covid meds/supportive care/incentive spirometry/antitussives/proning as able Will add guaifenesin if cough not being controlled Improvement in his oxygen requirement after trial of Lasix. Get proBNP to rule out heart failure component. Continue to monitor clinically and lab le. #. Hyperglycemiastable to control #. 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 Glycemic pharmacy on board: Difficult to control his blood glucose level, patient needed insulin infusion protocol initially. Continue to monitor #. Hypertension Under control. Continue ramipril, baby aspirin #. Elevated transferase levels AST and ALT in 110s, stable/slightly better than yesterday We will continue to monitor #. Low hemoglobin Admitting hemoglobin 14.2, downtrending to 12.6 today, FOBT negative, iron panel sent Follow-up with results Follow-up daily CBC until hemoglobin stable #. Mild hyponatremia at presentation: Resolved DVT PPx: - teds, scds, heparin CODE: Full code Admission and Anticipated Discharge Date Admission Date: November 16, 2020 Subjective Patient was lying semiupright in bed, on 5 L nasal cannula oxygen, NAD, no issues overnight. Patient's reports feeling better today overall including cough. He is eating good. He has not had any bowel movement since yesterday. Patient advised to sleep prone as able. Denies worsening shortness of breath/cough. Denies other review of symptoms. Physical Exam Physical Exam: GENERAL: Alert and oriented x3. NAD, on 5 L. HEENT: No pallor, no icterus. Pupils equal, round and reactive to light. Oral mucosa moist. NECK: No JVD, no neck masses. HEART: S1 and S2 heard. Regular rate and rhythm. No murmur, no gallop. RESPIRATORY SYSTEM: Normal AP diameter. No accessory muscle use. No wheezing, bibasal crackles. ABDOMEN: Soft, bowel sounds present, nontender, no distention. CENTRAL NERVOUS SYSTEM: Alert and oriented x3. No facial droop. Speech is clear. Obeys simple commands. Moves extremities. EXTREMITIES: Trace edema, no erythema seen. Results & Data Results & Data ([facility]) Vital Signs (Past 12 Hours) Vital Signs Temp Pulse Pulse Resp BP Pulse Ox 11/19/20 16:16 92 11/19/20 16:15 36.6 C 71 18 130/79 94 11/19/20 15:12 72 11/19/20 12:16 36.4 C L 75 20 116/73 90 11/19/20 08:52 90 11/19/20 08:49 36.6 C 75 18 133/74 88 L 11/19/20 07:31 69
[2020-11-19] MEDS: REMDESIVIR 100 MG in SODIUM CHLORIDE 0.9% 230 ML IV SCH (20:57)
[2020-11-19] MEDS: SODIUM CHLORIDE 0.9% 10ML FLUSH IV SCH (22:07)
[2020-11-20] MEDS ORDERED: INSULIN ASPART 100 UNITS/ML 3 ML PEN SC SCH (07:30)
[2020-11-20] MEDS: BENZONATATE 100 MG CAPSULE PO SCH ×3 (08:28→20:52)
[2020-11-20] MEDS: HEPARIN SOD 5,000 UNIT/0.5 ML VIAL SQ SCH ×2 (08:28→20:53)
[2020-11-20] MEDS: guaiFENesin 600 MG TABCR PO SCH ×2 (08:28→20:55)
[2020-11-20] MEDS: ENALAPRIL MALEATE 10 MG TAB PO SCH (08:28)
[2020-11-20] MEDS: ASPIRIN 81 MG ECTAB PO SCH (08:28)
[2020-11-20] MEDS ORDERED: INSULIN GLARGINE SOLOSTAR 100 UNITS/ML 3 ML PEN SC ONE (08:30)
[2020-11-20] MEDS: INSULIN ASPART 100 UNITS/ML 3 ML PEN SC SCH ×4 (08:30→20:57)
[2020-11-20 08:31] LABS: Hemoglobin 13.3 g/dL (14.0-18.0); Mean Corpuscular Hemoglobin 30.8 pg (25-34); Mean Platelet Volume 9.8 fL (7.4-10.4); Platelet Count 305 K/uL (130-400); RDW Coefficient of Variation 13.6 % (11.5-14.5); RDW Standard Deviation 43.8 fL (36.4-46.3); Red Blood Count 4.32 M/uL (4.7-6.1); White Blood Count 13.86 K/uL (4.8-10.8)
[2020-11-20] MEDS: dexAMETHasone 6 MG in SYRINGE 0 ML IV SCH (08:41)
[2020-11-20] MEDS: INSULIN HUMAN NPH SC SCH (09:06)
[2020-11-20 09:09] LABS: BUN Creatinine Ratio 33.2 (10-20); Calcium 8.3 mg/dl (8.5-10.1); Creatinine Clr Calc Pharmacy 109.1 ml/min; Potassium 3.9 mmol/L (3.5-5.1)
--- NOTE | 2020-11-20 09:18 | Electrocardiogram Report ---
Test Reason : Blood Pressure : / mmHG Vent. Rate : 095 BPM Atrial Rate : 095 BPM P-R Int : 206 ms QRS Dur : 096 ms QT Int : 330 ms P-R-T Axes : 034 062 027 degrees QTc Int : 414 ms Normal sinus rhythm Incomplete right bundle branch block Borderline ECG When compared with ECG of 03-AUG-2007 10:53, Premature atrial complexes are no longer Present Vent. rate has increased BY 33 BPM Confirmed by Manuel Tom ([id number]) on 11/20/2020 9:17:41 AM Referred By: REFERRED SELF Confirmed By:Manuel Tom
--- NOTE | 2020-11-20 10:41 | Pharmacy Report ---
Pharmacy Glycemic Short Note 2 - Date of Service November 20, 2020 - Glycemic Short BSG Results (Last 24 hours): 11/19/20 11/19/20 11/19/20 12:12 17:13 20:49 Glucose POC Glucose 246 H 203 H 90 11/20/20 11/20/20 08:14 08:19 Glucose 77 POC Glucose 78 OUTPATIENT ANTIDIABETIC REGIMEN: * Amaryl * HbA1c: 10.3% (11/17/20) ASSESSMENT: 11/20: * BSGs yesterday 135, 246, 203, and 90 mg/dL * Trend continues with elevated lunch/dinnertime BSGs and then lower BSGs at HS/overnight * Received 160 units of insulin (40 units of NPH, 35 units of Lantus, and 85 units of prandial/correctional bolus) * Will continue NPH at 0.4 unit/kg with dexamethasone * Given BSG trend, will maintain tight Novolog parameters with breakfast/lunch and loosen with dinner/HS * Fasting BSG of 78 mg/dL this morning - will decrease Lantus again today 11/19: * BSGs yesterday of 278, 271, 188, and 90 mg/dL * Received 152 units of insulin, 40 units of NPH, 40 units of Lantus, and 72 units of prandial/correctional * Given yesterday's trend, will continue tightened parameters in AM, but loosen with lunch, dinner, and HS * Continue 0.4 unit/kg NPH, likely Lantus scale this evening * Lunch BSG elevated, but morning Novolog given late - will not overreact especially since BSGs trended down yesterday evening 11/18: * BSGs trended down nicely yesterday following insulin drip discontinuation * BSGs elevated today, 278 and 271 mg/dL * 0.4 unit/kg NPH given with IV dexamethasone this morning * Will tighten Novolog parameters 11/17: * 60yo T2DM male with unknown degree of outpatient control - A1c pending. * Pt is maintained on Amarayl monotherapy - will hold this for admission and use SQ basal bolus insulin regimen * Pt with SEVERE hyperglycemia on admission secondary to illness (possibly poor outpatient control?), and steroids (dexamethasone 6mg IV Q24hrs for COVID). Pt received multiple IV bolus of insulin, SQ novolog boluses, and Lantus 30 units last night. Pt still with SEVERE hyperglycemia this AM. * Will start weight based NPH to cover DXM and add an IV insulin infusion for severe hyperglycemia. * Will stop IV insulin infusion when BSG < 180 x 2 AND IV insulin infusion rate < 1 unit/hr; infusion rates should decrease as SQ insulin kicks in PLAN FOR INPATIENT GLYCEMIC CONTROL: * Hold outpatient oral diabetes medications * Basal insulin - decrease Lantus * NPH 40 units SC daily (0.4 unit/kg) with IV dexamethasone * Lantus 20 units today * Bolus insulin: will start CF when drip DC. Use insulin to CHO ratio of 4 while on infusion * NovoLog per scale ACHS or Q6hrs while NPO * Goal Range: Low 110 mg/dL - High 140 mg/dL * Correction Factor w/ breakfast and lunch: 8 mg/dL/unit; correction Factor w/ dinner and HS: 15 mg/dL/unit * Nutritional / Prandial insulin per carb ratio of 1 unit per 2 grams CHO consumed w/ breakfast and lunch; 1 unit per 5 grams CHO consumed w/ dinner and HS PLAN FOR DISCHARGE: * HbA1c of 10.3% suggests poor outpatient glycemic control * A1c is greater than or equal to 10% consider triple therapy with metformin + basal insulin + (GLP1-RA OR prandial insulin). * Metformin XR 500mg PO daily with evening meal. Typically the XR formulation of metformin is better tolerated than the immediate release formulation. Continue to titrate metformin dosing upwards as recommended. Dosage increases should be made in increments of 500 mg weekly, up to 2,000 mg/day PO, given in divided doses. * B12 supplementation may be necessary with correction metformin * Patient will require insulin at discharge: doses to be determined once steroids discontinued * Discontinue Amaryl if insulin initiated to decrease risk of hypoglycemia
--- NOTE | 2020-11-20 13:05 | Hospitalist Progress Note ---
Date of Service November 20, 2020 Assessment & Plan (1) COVID-19: (2) Elevated transaminase level: (3) Acute dyspnea: Plan: 60-year-old male with past medical history of hypertension, hyperlipidemia, diabetes type 2 on glimepiride and Metformin came in 11/16 for intractable coughing and worsening shortness of breath associated with diarrhea for few days, cough with whitish sputum, fever ranging from 98-101.5F at home. He was having symptoms since November 08, tested positive for Covid on 11/13. #. COVID-19 #. Acute hypoxic respiratory failure Upon presentation, he was saturating 90-91% on room air, 94% on 2 L Procalcitonin negative, admitting chest x-ray suggestive of bilateral pneumonia Patient started on Decadron 11/16 and remdesivir 11/16 Continue with Covid meds/supportive care/incentive spirometry/antitussives/proning as able proBNP of 190. Will order one-time dose of IV Lasix 20 mg now. Monitor ins and outs along with daily weights. #. Hyperglycemiastable to control #. 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 Continue to monitor #. Hypertension Under control. Continue ramipril, baby aspirin #. Elevated transferase levels AST and ALT in 110s, stable, continue to improve #. Low hemoglobin Admitting hemoglobin 14.2, remains stable around 12-13. #. Mild hyponatremia at presentation: Resolved DVT PPx: - teds, scds, heparin CODE: Full code Admission and Anticipated Discharge Date Admission Date: November 16, 2020 Subjective Currently patient is on 5 L of nasal cannula. He does not appear to be in any distress. Denies any worsening of shortness of breath. Have cough. Denies any chest pain, abdominal pain, diarrhea or dysuria. Review of Systems Review of Systems: All systems reviewed & are unremarkable except as noted in HPI & below Physical Exam Physical Exam: General: A&Ox3 HENT: NCAT, MMM, EOMI Eyes: PERRLA Neck: Supple, normal range of motion CVS: normal rate and rhythm Resp: b/l good breath sounds Abdomen: Soft, ND/NT, +BS Extremities: No c/c/e Neuro: face symmetric, strength grossly equal, no focal deficit Skin: warm and dry, no rashes/lesions/errythema MSK: normal ROM, no joint swelling/erythema Results & Data Results & Data ([facility]) Vital Signs (Past 12 Hours) Vital Signs Temp Pulse Pulse Resp BP Pulse Ox 11/20/20 12:28 36.4 C L 75 18 127/76 90 11/20/20 08:16 90 11/20/20 08:15 36.6 C 71 18 131/76 86 L 11/20/20 07:14 60 11/20/20 03:09 36.4 C L 66 18 128/80 91 Laboratory Results Laboratory Results - last 24 hr 11/19/20 11/19/20 11/19/20 08:09 17:13 20:49 WBC RBC Hgb Hct MCV MCH MCHC RDW Std Deviation RDW Coeff of Topher Plt Count MPV Sodium Potassium Chloride Carbon Dioxide Anion Gap BUN Creatinine Est Cr Clr Drug Dosing Est GFR ( Amer) Est GFR (Non-Af Amer) BUN/Creatinine Ratio Glucose POC Glucose 203 H 90 Calcium AST ALT NT-Pro-B Natriuret Pep 190 11/20/20 11/20/20 11/20/20 08:14 08:19 08:19 WBC 13.86 H RBC 4.32 L Hgb 13.3 L Hct 38.0 L MCV 88.0 MCH 30.8 MCHC 35.0 RDW Std Deviation 43.8 RDW Coeff of Topher 13.6 Plt Count 305 MPV 9.8 Sodium 139 Potassium 3.9 Chloride 109 H Carbon Dioxide 21 Anion Gap 10.0 BUN 28 H Creatinine 0.85 Est Cr Clr Drug Dosing 109.1 Est GFR ( Amer) 109.0 Est GFR (Non-Af Amer) 94.0 BUN/Creatinine Ratio 33.2 H Glucose 77 POC Glucose 78 Calcium 8.3 L AST 52 H ALT 88 H NT-Pro-B Natriuret Pep 11/20/20 12:26 WBC RBC Hgb Hct MCV MCH MCHC RDW Std Deviation RDW Coeff of Topher Plt Count MPV Sodium Potassium Chloride Carbon Dioxide Anion Gap BUN Creatinine Est Cr Clr Drug Dosing Est GFR ( Amer) Est GFR (Non-Af Amer) BUN/Creatinine Ratio Glucose POC Glucose 126 H Calcium AST ALT NT-Pro-B Natriuret Pep
[2020-11-20] MEDS ORDERED: FUROSEMIDE 20 MG in SYRINGE 0 ML IV ONE (13:15)
[2020-11-20] MEDS: REMDESIVIR 100 MG in SODIUM CHLORIDE 0.9% 230 ML IV SCH (20:50)
[2020-11-20] MEDS: SODIUM CHLORIDE 0.9% 10ML FLUSH IV SCH (20:50)
[2020-11-20] MEDS: ALBUT/IPRATROP 3MG/0.5MG NEB 3 ML VIAL NEB PRN (22:47)
[2020-11-21 06:41] LABS: Basophils # (auto) 0.02 K/uL (0-0.2); Basophils % (auto) 0.2 %; Hematocrit (blood only) 35.3 % (42-52); Hemoglobin 12.4 g/dL (14.0-18.0); Immature Granulocytes # (auto) 0.52 K/uL (0.00-0.02); Immature Granulocytes % (auto) 4.2 %; Lymphocytes # (auto) 1.19 K/uL (1.2-3.4); Lymphocytes % (auto) 9.5 %; Mean Corpuscular Hemoglobin 30.6 pg (25-34); Mean Corpuscular Hgb Conc 35.1 g/dL (32-36); Mean Corpuscular Volume 87.2 fL (80-100); Mean Platelet Volume 9.8 fL (7.4-10.4); Monocytes % (auto) 11.2 %; Neutrophils # (auto) 9.34 K/uL (1.4-6.5); Neutrophils % (auto) 74.9 %; Platelet Count 326 K/uL (130-400); RDW Coefficient of Variation 13.5 % (11.5-14.5); RDW Standard Deviation 43.2 fL (36.4-46.3); Red Blood Count 4.05 M/uL (4.7-6.1); White Blood Count 12.47 K/uL (4.8-10.8)
[2020-11-21] MEDS: ALBUT/IPRATROP 3MG/0.5MG NEB 3 ML VIAL NEB PRN ×2 (07:09→20:27)
[2020-11-21 07:14] LABS: BUN Creatinine Ratio 38.6 (10-20); Calcium 7.9 mg/dl (8.5-10.1); Creatinine Clr Calc Pharmacy 115.9 ml/min; Est GFR (African American) 111.7 ml/min; Est GFR (Non-African American) 96.4 ml/min; Potassium 3.9 mmol/L (3.5-5.1)
--- NOTE | 2020-11-21 08:31 | Pharmacy Report ---
Pharmacy Glycemic Short Note 2 - Date of Service November 21, 2020 - Glycemic Short BSG Results (Last 24 hours): 11/20/20 11/20/20 11/20/20 08:19 12:26 17:07 Glucose 77 POC Glucose 126 H 107 H 11/20/20 11/21/20 11/21/20 20:38 06:06 07:42 Glucose 147 H POC Glucose 150 H 161 H OUTPATIENT ANTIDIABETIC REGIMEN: * Amaryl * HbA1c: 10.3% (11/17/20) ASSESSMENT: 11/21: * BSGs much improved yesterday, 78, 126, 107, and 150 mg/dL * Continue tight parameters with breakfast and lunch, loose parameters with dinner and HS * Received 112 units of insulin (40 units of NPH, 20 units of Lantus, and 52 units of prandial/correctional bolus) * Continues on dexamethasone 6 mg IV * Fasting BSG of 161 mg/dL this morning * Will increase Lantus today ~25% 11/20: * BSGs yesterday 135, 246, 203, and 90 mg/dL * Trend continues with elevated lunch/dinnertime BSGs and then lower BSGs at HS/overnight * Received 160 units of insulin (40 units of NPH, 35 units of Lantus, and 85 units of prandial/correctional bolus) * Will continue NPH at 0.4 unit/kg with dexamethasone * Given BSG trend, will maintain tight Novolog parameters with breakfast/lunch and loosen with dinner/HS * Fasting BSG of 78 mg/dL this morning - will decrease Lantus again today 11/17: * 60yo T2DM male with unknown degree of outpatient control - A1c pending. * Pt is maintained on Amarayl monotherapy - will hold this for admission and use SQ basal bolus insulin regimen * Pt with SEVERE hyperglycemia on admission secondary to illness (possibly poor outpatient control?), and steroids (dexamethasone 6mg IV Q24hrs for COVID). Pt received multiple IV bolus of insulin, SQ novolog boluses, and Lantus 30 units last night. Pt still with SEVERE hyperglycemia this AM. * Will start weight based NPH to cover DXM and add an IV insulin infusion for severe hyperglycemia. * Will stop IV insulin infusion when BSG < 180 x 2 AND IV insulin infusion rate < 1 unit/hr; infusion rates should decrease as SQ insulin kicks in PLAN FOR INPATIENT GLYCEMIC CONTROL: * Hold outpatient oral diabetes medications * Basal insulin - increase Lantus * NPH 40 units SC daily (0.4 unit/kg) with IV dexamethasone * Lantus 25 units today * Bolus insulin: will start CF when drip DC. Use insulin to CHO ratio of 4 while on infusion * NovoLog per scale ACHS or Q6hrs while NPO * Goal Range: Low 110 mg/dL - High 140 mg/dL * Correction Factor w/ breakfast and lunch: 8 mg/dL/unit; correction Factor w/ dinner and HS: 15 mg/dL/unit * Nutritional / Prandial insulin per carb ratio of 1 unit per 2 grams CHO consumed w/ breakfast and lunch; 1 unit per 5 grams CHO consumed w/ dinner and HS PLAN FOR DISCHARGE: * HbA1c of 10.3% suggests poor outpatient glycemic control * A1c is greater than or equal to 10% consider triple therapy with metformin + basal insulin + (GLP1-RA OR prandial insulin). * Metformin XR 500mg PO daily with evening meal. Typically the XR formulation of metformin is better tolerated than the immediate release formulation. Continue to titrate metformin dosing upwards as recommended. Dosage increases should be made in increments of 500 mg weekly, up to 2,000 mg/day PO, given in divided doses. * B12 supplementation may be necessary with medical terminologist metformin * Patient will require insulin at discharge: doses to be determined once steroids discontinued * If insufficient data available prior to discharge suggest starting insulin glargine 20 units SC daily * Discontinue Amaryl if insulin initiated to decrease risk of hypoglycemia
[2020-11-21] MEDS: dexAMETHasone 6 MG in SYRINGE 0 ML IV SCH (08:33)
[2020-11-21] MEDS: BENZONATATE 100 MG CAPSULE PO SCH ×3 (08:38→21:23)
[2020-11-21] MEDS: INSULIN ASPART 100 UNITS/ML 3 ML PEN SC SCH ×4 (08:58→20:19)
[2020-11-21] MEDS: INSULIN HUMAN NPH SC SCH (08:59)
[2020-11-21] MEDS ORDERED: INSULIN GLARGINE SOLOSTAR 100 UNITS/ML 3 ML PEN SC SCH (09:00)
[2020-11-21] MEDS: ENALAPRIL MALEATE 10 MG TAB PO SCH (09:34)
[2020-11-21] MEDS: HEPARIN SOD 5,000 UNIT/0.5 ML VIAL SQ SCH ×2 (09:34→21:20)
[2020-11-21] MEDS: ASPIRIN 81 MG ECTAB PO SCH (09:34)
[2020-11-21] MEDS: guaiFENesin 600 MG TABCR PO SCH ×2 (09:34→21:19)
--- NOTE | 2020-11-21 13:34 | Hospitalist Progress Note ---
Date of Service November 21, 2020 Assessment & Plan (1) COVID-19: (2) Elevated transaminase level: (3) Acute dyspnea: Plan: 60-year-old male with past medical history of hypertension, hyperlipidemia, diabetes type 2 on glimepiride and Metformin came in 11/16 for intractable coughing and worsening shortness of breath associated with diarrhea for few days, cough with whitish sputum, fever ranging from 98-101.5F at home. He was having symptoms since November 08, tested positive for Covid on 11/13. #. COVID-19 #. Acute hypoxic respiratory failure Upon presentation, he was saturating 90-91% on room air, 94% on 2 L Procalcitonin negative, admitting chest x-ray suggestive of bilateral pneumonia Completed 5 days of therapy with remdesivir. Continue Decadron for now. Continue with Covid meds/supportive care/incentive spirometry/antitussi ves/proning as able proBNP of 190. Will order one-time dose of IV Lasix 40 mg now. Monitor ins and outs along with daily weights. At rest patient is requiring 2 L of nasal cannula and with ambulation 6 L. Continue with diuresis to help wean off the oxygen. #. Hyperglycemiastable to control #. Diabetes mellitus type 2 Hold [employer] glimepiride and Metformin Glycemic pharmacy on board: Difficult to control his blood glucose level, patient needed insulin infusion protocol initially. Continue to monitor #. Hypertension Under control. Continue ramipril, baby aspirin #. Elevated transferase levels - resolved #. Low hemoglobin Admitting hemoglobin 14.2, remains stable around 12-13. #. Mild hyponatremia at presentation: Resolved DVT PPx: - teds, scds, heparin CODE: Full code Admission and Anticipated Discharge Date Admission Date: November 16, 2020 Subjective Doing okay this morning. Requiring 2 to 3 L of nasal cannula at rest and 6 L with ambulation. Reports shortness of breath and cough is okay. Rest of the review of system is negative. Review of Systems Review of Systems: All systems reviewed & are unremarkable except as noted in HPI & below Physical Exam Physical Exam: General: A&Ox3 HENT: NCAT, MMM, EOMI Eyes: PERRLA Neck: Supple, normal range of motion CVS: normal rate and rhythm Resp: b/l good breath sounds Abdomen: Soft, ND/NT, +BS Extremities: No c/c/e Neuro: face symmetric, strength grossly equal, no focal deficit Skin: warm and dry, no rashes/lesions/errythema MSK: normal ROM, no joint swelling/erythema Results & Data Results & Data ([facility]) Vital Signs (Past 12 Hours) Vital Signs Temp Pulse Pulse Pulse Pulse Pulse Pulse 11/21/20 11:38 36.4 C L 11/21/20 11:32 87 84 83 99 H 90 11/21/20 07:55 36.5 C 11/21/20 07:49 67 11/21/20 07:09 11/21/20 03:30 36.5 C Pulse Pulse Resp Resp Resp Resp Resp 11/21/20 11:38 77 19 11/21/20 11:32 74 22 26 H 24 24 11/21/20 07:55 72 19 11/21/20 07:49 11/21/20 07:09 66 16 11/21/20 03:30 65 18 Resp Resp BP Pulse Ox Pulse Ox Pulse Ox Pulse Ox 11/21/20 11:38 145/82 H 11/21/20 11:32 20 16 86 L 86 L 87 L 11/21/20 07:55 123/69 92 11/21/20 07:49 11/21/20 07:09 92 11/21/20 03:30 123/77 92 Pulse Ox Pulse Ox Pulse Ox 11/21/20 11:38 11/21/20 11:32 87 L 89 L 87 L 11/21/20 07:55 11/21/20 07:49 11/21/20 07:09 11/21/20 03:30
[2020-11-22 06:45] LABS: Alanine Aminotransferase 66 U/L (12-78); Aspartate Aminotransferase 23 U/L (15-37)
[2020-11-22] MEDS ORDERED: INSULIN GLARGINE SOLOSTAR 100 UNITS/ML 3 ML PEN SC SCH (09:00)
[2020-11-22] MEDS: dexAMETHasone 6 MG in SYRINGE 0 ML IV SCH (09:15)
[2020-11-22] MEDS: guaiFENesin 600 MG TABCR PO SCH ×2 (09:20→20:57)
[2020-11-22] MEDS: ENALAPRIL MALEATE 10 MG TAB PO SCH (09:20)
[2020-11-22] MEDS: HEPARIN SOD 5,000 UNIT/0.5 ML VIAL SQ SCH (09:20)
[2020-11-22] MEDS: ASPIRIN 81 MG ECTAB PO SCH (09:20)
[2020-11-22] MEDS: INSULIN HUMAN NPH SC SCH (09:25)
[2020-11-22] MEDS: INSULIN ASPART 100 UNITS/ML 3 ML PEN SC SCH ×4 (09:35→20:45)
[2020-11-22] MEDS ORDERED: INSULIN HUMAN NPH SC SCH (10:15)
[2020-11-22] MEDS: dexAMETHasone 4 MG TAB PO SCH (10:34)
--- NOTE | 2020-11-22 13:01 | Pharmacy Report ---
Pharmacy Glycemic Short Note 2 - Date of Service November 22, 2020 - Glycemic Short BSG Results (Last 24 hours): 11/21/20 11/21/20 11/22/20 17:10 20:13 08:10 POC Glucose 194 H 153 H 72 11/22/20 12:07 POC Glucose 174 H OUTPATIENT ANTIDIABETIC REGIMEN: * Amaryl * HbA1c: 10.3% (11/17/20) ASSESSMENT: 11/22: * BSGs yesterday of 161, 255, 194, 153 mg/dL, fasting BSG of 72 mg/dL * Received 121 units of insulin yesterday (40 units of NPH, 25 units of Lantus, and 56 units of prandial/correctional) * Steroids changed from IV to PO dexamethasone 6 mg daily * Will decrease basal insulin today in light of AM fasting BSG 11/21: * BSGs much improved yesterday, 78, 126, 107, and 150 mg/dL * Continue tight parameters with breakfast and lunch, loose parameters with dinner and HS * Received 112 units of insulin (40 units of NPH, 20 units of Lantus, and 52 units of prandial/correctional bolus) * Continues on dexamethasone 6 mg IV * Fasting BSG of 161 mg/dL this morning * Will increase Lantus today ~25% 11/20: * BSGs yesterday 135, 246, 203, and 90 mg/dL * Trend continues with elevated lunch/dinnertime BSGs and then lower BSGs at HS/overnight * Received 160 units of insulin (40 units of NPH, 35 units of Lantus, and 85 units of prandial/correctional bolus) * Will continue NPH at 0.4 unit/kg with dexamethasone * Given BSG trend, will maintain tight Novolog parameters with breakfast/lunch and loosen with dinner/HS * Fasting BSG of 78 mg/dL this morning - will decrease Lantus again today 11/17: * 60yo T2DM male with unknown degree of outpatient control - A1c pending. * Pt is maintained on Amarayl monotherapy - will hold this for admission and use SQ basal bolus insulin regimen * Pt with SEVERE hyperglycemia on admission secondary to illness (possibly poor outpatient control?), and steroids (dexamethasone 6mg IV Q24hrs for COVID). Pt received multiple IV bolus of insulin, SQ novolog boluses, and Lantus 30 units last night. Pt still with SEVERE hyperglycemia this AM. * Will start weight based NPH to cover DXM and add an IV insulin infusion for severe hyperglycemia. * Will stop IV insulin infusion when BSG < 180 x 2 AND IV insulin infusion rate < 1 unit/hr; infusion rates should decrease as SQ insulin kicks in PLAN FOR INPATIENT GLYCEMIC CONTROL: * Hold outpatient oral diabetes medications * Basal insulin - decrease * NPH 30 units SC daily with IV dexamethasone * Lantus 0-15 units SC HS (see EHR for details) * Bolus insulin: will start CF when drip DC. Use insulin to CHO ratio of 4 while on infusion * NovoLog per scale ACHS or Q6hrs while NPO * Goal Range: Low 110 mg/dL - High 140 mg/dL * Correction Factor w/ breakfast and lunch: 8 mg/dL/unit; correction Factor w/ dinner and HS: 15 mg/dL/unit * Nutritional / Prandial insulin per carb ratio of 1 unit per 2 grams CHO consumed w/ breakfast and lunch; 1 unit per 5 grams CHO consumed w/ dinner and HS PLAN FOR DISCHARGE: * HbA1c of 10.3% suggests poor outpatient glycemic control * A1c is greater than or equal to 10% consider triple therapy with metformin + basal insulin + (GLP1-RA OR prandial insulin). * Metformin XR 500mg PO daily with evening meal. Typically the XR formulation of metformin is better tolerated than the immediate release formulation. Continue to titrate metformin dosing upwards as recommended. Dosage increases should be made in increments of 500 mg weekly, up to 2,000 mg/day PO, given in divided doses. * B12 supplementation may be necessary with terminal superintendent metformin * Patient will require insulin at discharge: doses to be determined once steroids discontinued * If insufficient data available prior to discharge suggest starting insulin glargine 20 units SC daily * Discontinue Amaryl if insulin initiated to decrease risk of hypoglycemia
--- NOTE | 2020-11-22 16:02 | Hospitalist Progress Note ---
Date of Service November 22, 2020 Assessment & Plan (1) Acute respiratory failure with hypoxia: Plan: Secondary to Covid pneumonia, see below (2) Pneumonia due to COVID-19 virus: Plan: Patient overall feels improved however still requiring oxygen with 93% at 5 L/min supplementation today. Symptoms of diarrhea have resolved and no report of significant coughing, wheezing or other respiratory issues. Proning as able. Continue supportive care efforts in daily Decadron. Completed 5 days of remdesivir. Will start daily Lasix as of tomorrow morning with potassium supplementation as needed in order to help wean off oxygen. Ambulate as tolerated. Continue incentive spirometry. Add vitamin C, zinc, vitamin D. (3) Elevated transaminase level: Plan: Uncertain etiology, resolved to normal levels. (4) DM II (diabetes mellitus, type II), controlled: Plan: Uncontrolled at baseline with hemoglobin A1c of 10.1, on steroids controlled with basal bolus insulin while admitted, currently at goal. (5) HTN (hypertension): Plan: At goal blood pressure, on ramipril at home, continue Vasotec 20 mg daily in house. (6) DVT prophylaxis: Plan: Heparin DC'd, switch to Lovenox to decrease shot burden Full code Disposition-to home when off oxygen with ambulation [facility] and [facility]ticipated Discharge Date Admission Date: November 16, 2020 Subjective 60-year-old man presents with COVID-19 positive test (U07.1, COVID-19) with Acute Pneumonia (J12.89, Other viral pneumonia) (If respiratory failure or sepsis present, add as separate assessment) Review of Systems Review of Systems: All systems were reviewed and negative except as indicated in HPI above. Physical Exam Physical Exam: CONSTITUTIONAL: WNWD, vitals as above, generally well- appearing EYES: normal conjunctivae, no scleral icterus ENT: external ear and nose normal, MMM NECK: trachea midline RESPIRATORY: clear to auscultation bilaterally, no crackles, rales or wheezes, normal respiratory effort CARDIOVASCULAR: regular rate and rhythm, S1 and 2 heard without murmurs, gallops or rubs, no JVD, no peripheral edema CHEST: inspection of chest was normal GASTROINTESTINAL: soft, nontender, nondistended. MUSCULOSKELETAL: strength 5/5 throughout, head is normocephalic and atraumatic, neck supple SKIN: warm and dry NEUROLOGIC: CN 2-12 grossly intact, normal cognition, normal speech, no tremor, no gross focal deficits. PSYCHIATRIC: alert cooperative and oriented to person, place and time. Results & Data Results & Data ([facility]) Vital Signs (Past 12 Hours) Vital Signs Temp Pulse Pulse Resp BP BP Pulse Ox 11/22/20 15:34 77 11/22/20 12:12 36.4 C L 71 20 122/80 93 11/22/20 09:15 91 11/22/20 08:16 36.5 C 70 20 145/88 H 92 11/22/20 07:41 59 L Laboratory Results Liver Function 11/22/20 Range/Units 05:58 AST 23 (15-37) U/L ALT 66 (12-78) U/L Medications Administered Current Inpatient Medications Acetaminophen (Acetaminophen 325 Mg Tab) 650 mg PO Q4H PRN PRN Reason: Moderate Pain Stop: 12/16/20 23:47 Last Admin: 11/18/20 17:43 Dose: 650 mg Documented by: Albuterol (Albut/Ipratrop 3mg/0.5mg Neb 3 Ml Vial) 3 ml NEB Q4R PRN PRN Reason: Shortness Of Breath Stop: 12/16/20 23:47 Last Admin: 11/21/20 20:27 Dose: 3 ml Documented by: Aspirin (Aspirin 81 Mg Ectab) 81 mg PO DAILY ERMELINDA Stop: 12/17/20 08:59 Last Admin: 11/22/20 09:20 Dose: 81 mg Documented by: Dexamethasone (Dexamethasone 4 Mg Tab) 6 mg PO DAILY ERMELINDA Stop: 12/22/20 09:29 Last Admin: 11/22/20 10:34 Dose: 6 mg Documented by: Dextrose (Dextrose 50% 50 Ml Syringe) 25 - 50 ml IV UD PRN; Protocol PRN Reason: Hypoglycemia Protocol Stop: 12/16/20 23:47 Enalapril Maleate (Enalapril Maleate 10 Mg Tab) 20 mg PO DAILY ERMELINDA Stop: 12/17/20 08:59 Last Admin: 11/22/20 09:20 Dose: 20 mg Documented by: Glucagon (Glucagon For Inj 1 Mg Vial) 1 mg SQ UD PRN; Protocol PRN Reason: Hypoglycemia Protocol Stop: 12/16/20 23:47 Glucose (Glucose 10 Tabs/Tube) 4 - 8 tabs PO UD PRN; Protocol PRN Reason: Hypoglycemia Protocol Stop: 12/16/20 23:47 Glucose (Glucose 40% Gel 15 Gm Tube) 15 - 30 gm PO UD PRN; Protocol PRN Reason: Hypoglycemia Protocol Stop: 12/16/20 23:47 Guaifenesin (Guaifenesin 600 Mg Tabcr) 1,200 mg PO Q12 [facility] Stop: 12/16/20 23:47 Last Admin: 11/22/20 09:20 Dose: 1,200 mg Documented by: Heparin Sodium (Porcine) (Heparin Sod 5,000 Unit/0.5 Ml Vial) 5,000 units SQ Q12 [facility] Stop: 12/16/20 23:47 Last Admin: 11/22/20 09:20 Dose: 5,000 units Documented by: Insulin Aspart (Insulin Aspart 100 Units/Ml 3 Ml Pen) 0 units SC 1630,2100 [facility] Stop: 12/19/20 11:29 Last Admin: 11/21/20 20:19 Dose: 1 units Documented by: Insulin Aspart (Insulin Aspart 100 Units/Ml 3 Ml Pen) 0 units SC 0730,1130 [facility] Stop: 12/20/20 07:29 Last Admin: 11/22/20 12:49 Dose: 40 units Documented by: Insulin Glargine (Insulin Glargine Solostar 100 Units/Ml 3 Ml Pen) 0 units SC HS [facility]; Protocol Stop: 12/22/20 20:59 Insulin Human NPH (Insulin Human Nph) 30 units SC DAILY [facility]; Protocol Stop: 12/22/20 10:14 Last Admin: 11/22/20 10:57 Dose: 30 units Documented by: Miscellaneous (Carbohydrates For Hypoglycemia ) 15 - 30 gm PO UD PRN PRN Reason: Hypoglycemia Protocol Stop: 12/16/20 23:47 Last Admin: 11/19/20 00:15 Dose: 15 gm Documented by: Miscellaneous Information (Pharmacy Glycemic Mgmt Consult) 1 ea N/A UD PRN PRN Reason: Consult Stop: 12/16/20 23:47 Ondansetron HCl (Ondansetron Inj 2 Mg/Ml 2 Ml Vial) 4 mg IV Q4H PRN PRN Reason: Nausea And Vomiting Stop: 12/16/20 23:47
[2020-11-22] MEDS: CARBOHYDRATES FOR HYPOGLYCEMIA PO PRN (17:39)
[2020-11-22] MEDS: INSULIN GLARGINE SOLOSTAR 100 UNITS/ML 3 ML PEN SC SCH (20:57)
[2020-11-22] MEDS: ENOXAPARIN INJ 40 MG/0.4 ML SYR SQ SCH (20:57)
[2020-11-22] MEDS: ASCORBIC ACID 500 MG TAB PO SCH (20:58)
[2020-11-23 07:48] LABS: Hematocrit (blood only) 37.7 % (42-52); Hemoglobin 13.4 g/dL (14.0-18.0); Mean Corpuscular Hemoglobin 30.9 pg (25-34); Mean Corpuscular Hgb Conc 35.5 g/dL (32-36); Mean Corpuscular Volume 86.9 fL (80-100); Mean Platelet Volume 9.6 fL (7.4-10.4); Platelet Count 389 K/uL (130-400); RDW Coefficient of Variation 13.1 % (11.5-14.5); RDW Standard Deviation 41.9 fL (36.4-46.3); Red Blood Count 4.34 M/uL (4.7-6.1); White Blood Count 14.63 K/uL (4.8-10.8)
[2020-11-23 08:14] LABS: BUN Creatinine Ratio 39.7 (10-20); Calcium 8.5 mg/dl (8.5-10.1); Creatinine Clr Calc Pharmacy 118.9 ml/min; Est GFR (African American) 112.9 ml/min; Est GFR (Non-African American) 97.4 ml/min; Phosphorus 3.7 mg/dl (2.5-4.9); Potassium 4.4 mmol/L (3.5-5.1)
[2020-11-23] MEDS: ASPIRIN 81 MG ECTAB PO SCH (08:26)
[2020-11-23] MEDS: CHOLECALCIFEROL 1,000 UNITS 25 MCG TAB PO SCH (08:26)
[2020-11-23] MEDS: ZINC SULFATE 220 MG CAPSULE PO SCH (08:26)
[2020-11-23] MEDS: ASCORBIC ACID 500 MG TAB PO SCH ×2 (08:26→21:37)
[2020-11-23] MEDS: ENALAPRIL MALEATE 10 MG TAB PO SCH (08:27)
[2020-11-23] MEDS: dexAMETHasone 4 MG TAB PO SCH (08:27)
[2020-11-23] MEDS: guaiFENesin 600 MG TABCR PO SCH ×2 (08:27→21:37)
[2020-11-23] MEDS: FUROSEMIDE 40 MG TAB PO SCH (08:27)
[2020-11-23] MEDS: INSULIN ASPART 100 UNITS/ML 3 ML PEN SC SCH ×4 (08:41→21:11)
[2020-11-23] MEDS ORDERED: INSULIN HUMAN NPH SC SCH (09:00)
[2020-11-23] MEDS ORDERED: INSULIN HUMAN NPH SC STA (09:22)
[2020-11-23] MEDS: POTASSIUM CHLORIDE CRTAB 20 MEQ TABCR PO SCH (09:37)
--- NOTE | 2020-11-23 13:56 | Hospitalist Progress Note ---
Date of Service November 23, 2020 Assessment & Plan (1) Acute respiratory failure with hypoxia: Plan: Secondary to Covid pneumonia, see below (2) Pneumonia due to COVID-19 virus: Plan: Patient overall feels improved however still requiring oxygen with 91% at 1 L/min supplementation today. Symptoms of diarrhea have resolved and no report of significant coughing, wheezing or other respiratory issues. Proning as able. Continue supportive care efforts in daily Decadron. Completed 5 days of remdesivir. Cont daily Lasix as of tomorrow morning with potassium supplementation as needed in order to help wean off oxygen. Ambulate as tolerated. Continue incentive spirometry. Cont vitamin C, zinc, vitamin D. (3) Elevated transaminase level: Plan: Uncertain etiology,?covid-- resolved to normal levels. (4) DM II (diabetes mellitus, type II), controlled: Plan: Uncontrolled at baseline with hemoglobin A1c of 10.1, on steroids controlled with basal bolus insulin while admitted, currently at goal. (5) HTN (hypertension): Plan: At goal blood pressure, on ramipril at home, continue Vasotec 20 mg daily in house. (6) DVT prophylaxis: Plan: Lovenox Full code Disposition-to home when off oxygen with ambulation Theodora Jane DO [facility] Admission and Anticipated Discharge Date Admission Date: November 16, 2020 Subjective 60-year-old man presents with covid pneumonia. Improved today, proning overnight Ambulating at baseline Dirarrhea resolved Tolerating PO Afebrile Min coughing Still needs oxygen supplementation Review of Systems Review of Systems: All systems were reviewed and negative except as indicated in HPI above. Physical Exam Physical Exam: CONSTITUTIONAL: WNWD, vitals as above, generally well- appearing EYES: normal conjunctivae, no scleral icterus ENT: external ear and nose normal, MMM NECK: trachea midline RESPIRATORY: clear to auscultation bilaterally, no crackles, rales or wheezes, normal respiratory effort CARDIOVASCULAR: regular rate and rhythm, S1 and 2 heard without murmurs, gallops or rubs, no JVD, no peripheral edema CHEST: inspection of chest was normal GASTROINTESTINAL: soft, nontender, nondistended. MUSCULOSKELETAL: strength 5/5 throughout, head is normocephalic and atraumatic, neck supple SKIN: warm and dry NEUROLOGIC: CN 2-12 grossly intact, normal cognition, normal speech, no tremor, no gross focal deficits. PSYCHIATRIC: alert cooperative and oriented to person, place and time. Results & Data Results & Data ([facility]) Vital Signs (Past 12 Hours) Vital Signs Temp Pulse Pulse Resp BP Pulse Ox 11/23/20 12:11 91 11/23/20 12:10 89 L 11/23/20 12:05 92 11/23/20 12:04 36.4 C L 67 18 107/67 94 11/23/20 08:13 36.6 C 63 18 119/77 92 11/23/20 07:43 56 L 11/23/20 05:00 36.4 C L 63 20 138/88 94 Laboratory Results Short CBC 11/23/20 Range/Units 07:24 WBC 14.63 H (4.8-10.8) K/uL Hgb 13.4 L (14.0-18.0) g/dL Hct 37.7 L (42-52) % Plt Count 389 (130-400) K/uL BMP 11/23/20 07:24 Sodium 135 L Potassium 4.4 Chloride 107 Carbon Dioxide 22 BUN 31 H Creatinine 0.78 Glucose 135 H Calcium 8.5 Medications Administered Current Inpatient Medications Acetaminophen (Acetaminophen 325 Mg Tab) 650 mg PO Q4H PRN PRN Reason: Moderate Pain Stop: 12/16/20 23:47 Last Admin: 11/18/20 17:43 Dose: 650 mg Documented by: Albuterol (Albut/Ipratrop 3mg/0.5mg Neb 3 Ml Vial) 3 ml NEB Q4R PRN PRN Reason: Shortness Of Breath Stop: 12/16/20 23:47 Last Admin: 11/21/20 20:27 Dose: 3 ml Documented by: Ascorbic Acid (Ascorbic Acid 500 Mg Tab) 500 mg PO BID ERMELINDA Stop: 12/22/20 20:59 Last Admin: 11/23/20 08:26 Dose: 500 mg Documented by: Aspirin (Aspirin 81 Mg Ectab) 81 mg PO DAILY ERMELINDA Stop: 12/17/20 08:59 Last Admin: 11/23/20 08:26 Dose: 81 mg Documented by: Dexamethasone (Dexamethasone 4 Mg Tab) 6 mg PO DAILY ERMELINAD Stop: 12/22/20 09:29 Last Admin: 11/23/20 08:27 Dose: 6 mg Documented by: Dextrose (Dextrose 50% 50 Ml Syringe) 25 - 50 ml IV UD PRN; Protocol PRN Reason: Hypoglycemia Protocol Stop: 12/16/20 23:47 Enalapril Maleate (Enalapril Maleate 10 Mg Tab) 20 mg PO DAILY [facility] Stop: 12/17/20 08:59 Last Admin: 11/23/20 08:27 Dose: 20 mg Documented by: Enoxaparin Sodium (Enoxaparin Inj 40 Mg/0.4 Ml Syr) 40 mg SQ HS [facility] Stop: 12/22/20 20:59 Last Admin: 11/22/20 20:57 Dose: 40 mg Documented by: Furosemide (Furosemide 40 Mg Tab) 40 mg PO QAM [facility] Stop: 12/23/20 08:59 Last Admin: 11/23/20 08:27 Dose: 40 mg Documented by: Glucagon (Glucagon For Inj 1 Mg Vial) 1 mg SQ UD PRN; Protocol PRN Reason: Hypoglycemia Protocol Stop: 12/16/20 23:47 Glucose (Glucose 10 Tabs/Tube) 4 - 8 tabs PO UD PRN; Protocol PRN Reason: Hypoglycemia Protocol Stop: 12/16/20 23:47 Glucose (Glucose 40% Gel 15 Gm Tube) 15 - 30 gm PO UD PRN; Protocol PRN Reason: Hypoglycemia Protocol Stop: 12/16/20 23:47 Guaifenesin (Guaifenesin 600 Mg Tabcr) 1,200 mg PO Q12 [facility] Stop: 12/16/20 23:47 Last Admin: 11/23/20 08:27 Dose: 1,200 mg Documented by: Insulin Aspart (Insulin Aspart 100 Units/Ml 3 Ml Pen) 0 units SC 1630,2100 [facility] Stop: 12/19/20 11:29 Last Admin: 11/22/20 20:45 Dose: 5 units Documented by: Insulin Aspart (Insulin Aspart 100 Units/Ml 3 Ml Pen) 0 units SC 0730,1130 [facility] Stop: 12/20/20 07:29 Last Admin: 11/23/20 12:20 Dose: 26 units Documented by: Insulin Glargine (Insulin Glargine Solostar 100 Units/Ml 3 Ml Pen) 0 units SC HS [facility]; Protocol Stop: 12/22/20 20:59 Last Admin: 11/22/20 20:57 Dose: 15 units Documented by: Insulin Human NPH (Insulin Human Nph) 15 units SC DAILY [facility]; Protocol Stop: 12/24/20 08:59 Miscellaneous (Carbohydrates For Hypoglycemia ) 15 - 30 gm PO UD PRN PRN Reason: Hypoglycemia Protocol Stop: 12/16/20 23:47 Last Admin: 11/22/20 17:39 Dose: 30 gm Documented by: Miscellaneous Information (Pharmacy Glycemic Mgmt Consult) 1 ea N/A UD PRN PRN Reason: Consult Stop: 12/16/20 23:47 Ondansetron HCl (Ondansetron Inj 2 Mg/Ml 2 Ml Vial) 4 mg IV Q4H PRN PRN Reason: Nausea And Vomiting Stop: 12/16/20 23:47 Potassium Chloride (Potassium Chloride Crtab 20 Meq Tabcr) 20 meq PO QAM [facility] Stop: 12/23/20 08:59 Last Admin: 11/23/20 09:37 Dose: 20 meq Documented by: Vitamin D (Cholecalciferol 1,000 Units 25 Mcg Tab) 1,000 units PO QAM ERMELINDA Stop: 12/23/20 08:59 Last Admin: 11/23/20 08:26 Dose: 1,000 units Documented by: Zinc Sulfate (Zinc Sulfate 220 Mg Capsule) 220 mg PO QAM ERMELINDA Stop: 12/23/20 08:59 Last Admin: 11/23/20 08:26 Dose: 220 mg Documented by:
--- NOTE | 2020-11-23 15:12 | Pharmacy Report ---
Pharmacy Glycemic Short Note 2 - Date of Service November 23, 2020 - Glycemic Short BSG Results (Last 24 hours): 11/22/20 11/22/20 11/22/20 17:12 17:14 17:30 Glucose POC Glucose 46 L* 48 L* 67 L* 11/22/20 11/22/20 11/23/20 17:53 19:43 07:24 Glucose 135 H POC Glucose 101 H 218 H 11/23/20 11/23/20 08:09 12:01 Glucose POC Glucose 141 H 201 H OUTPATIENT ANTIDIABETIC REGIMEN: * Amaryl * HbA1c: 10.3% (11/17/20) ASSESSMENT: 11/23: * Pt received total 109 units of insulin yesterday; 45 units basal + 64 units bolus. * Fasting BSG was 135 mg/dl today. Continued basal insulin scale based on BSG for tonight. * Pt was hypoglycemic yesterday at dinner time. Most likely reason for this was because the IV decadron yesterday was changed to PO Decadron which causes less hyperglycemia than IV. The NPH dose was pro-actively decreased yesterday morning but this was probably not enough. Further, Novolog carb ratio was also really tight at 2. This was loosened yesterday. * NPH dose today was decreased by half this morning to prevent hypoglycemia. Lunch BSG trended up above 200 today but expect it to trend down this pm. 11/22: * BSGs yesterday of 161, 255, 194, 153 mg/dL, fasting BSG of 72 mg/dL * Received 121 units of insulin yesterday (40 units of NPH, 25 units of Lantus, and 56 units of prandial/correctional) * Steroids changed from IV to PO dexamethasone 6 mg daily * Will decrease basal insulin today in light of AM fasting BSG 11/21: * BSGs much improved yesterday, 78, 126, 107, and 150 mg/dL * Continue tight parameters with breakfast and lunch, loose parameters with dinner and HS * Received 112 units of insulin (40 units of NPH, 20 units of Lantus, and 52 units of prandial/correctional bolus) * Continues on dexamethasone 6 mg IV * Fasting BSG of 161 mg/dL this morning * Will increase Lantus today ~25% 11/20: * BSGs yesterday 135, 246, 203, and 90 mg/dL * Trend continues with elevated lunch/dinnertime BSGs and then lower BSGs at HS/overnight * Received 160 units of insulin (40 units of NPH, 35 units of Lantus, and 85 units of prandial/correctional bolus) * Will continue NPH at 0.4 unit/kg with dexamethasone * Given BSG trend, will maintain tight Novolog parameters with breakfast/lunch and loosen with dinner/HS * Fasting BSG of 78 mg/dL this morning - will decrease Lantus again today 11/17: * 60yo T2DM male with unknown degree of outpatient control - A1c pending. * Pt is maintained on Amarayl monotherapy - will hold this for admission and use SQ basal bolus insulin regimen * Pt with SEVERE hyperglycemia on admission secondary to illness (possibly poor outpatient control?), and steroids (dexamethasone 6mg IV Q24hrs for COVID). Pt received multiple IV bolus of insulin, SQ novolog boluses, and Lantus 30 units last night. Pt still with SEVERE hyperglycemia this AM. * Will start weight based NPH to cover DXM and add an IV insulin infusion for severe hyperglycemia. * Will stop IV insulin infusion when BSG < 180 x 2 AND IV insulin infusion rate < 1 unit/hr; infusion rates should decrease as SQ insulin kicks in PLAN FOR INPATIENT GLYCEMIC CONTROL: * Hold outpatient oral diabetes medications * Basal insulin - decrease * NPH 15 units SC daily with PO dexamethasone * Lantus 0-15 units SC HS (see EHR for details) * Bolus insulin: loosened CF/CR * NovoLog per scale ACHS or Q6hrs while NPO * Goal Range: Low 110 mg/dL - High 140 mg/dL * Correction Factor w/ breakfast and lunch: 10 mg/dL/unit; correction Factor w/ dinner and HS: 20 mg/dL/unit * Nutritional / Prandial insulin per carb ratio of 1 unit per 3 grams CHO consumed w/ breakfast and lunch; 1 unit per 7 grams CHO consumed w/ dinner and HS PLAN FOR DISCHARGE: * HbA1c of 10.3% suggests poor outpatient glycemic control * A1c is greater than or equal to 10% consider triple therapy with metformin + basal insulin + (GLP1-RA OR prandial insulin). * Metformin XR 500mg PO daily with evening meal. Typically the XR formulation of metformin is better tolerated than the immediate release formulation. Continue to titrate metformin dosing upwards as recommended. Dosage increases should be made in increments of 500 mg weekly, up to 2,000 mg/day PO, given in divided doses. * B12 supplementation may be necessary with pen[facility] metformin * Patient will require insulin at discharge: doses to be determined once steroids discontinued * If insufficient data available prior to discharge suggest starting insulin glargine 20 units SC daily * Discontinue Amaryl if insulin initiated to decrease risk of hypoglycemia
[2020-11-23] MEDS: INSULIN GLARGINE SOLOSTAR 100 UNITS/ML 3 ML PEN SC SCH (21:16)
[2020-11-23] MEDS: ENOXAPARIN INJ 40 MG/0.4 ML SYR SQ SCH (21:37)
[2020-11-24] MEDS: guaiFENesin 600 MG TABCR PO SCH (08:14)
[2020-11-24] MEDS: ASCORBIC ACID 500 MG TAB PO SCH (08:14)
[2020-11-24] MEDS: POTASSIUM CHLORIDE CRTAB 20 MEQ TABCR PO SCH (08:14)
[2020-11-24] MEDS: FUROSEMIDE 40 MG TAB PO SCH (08:14)
[2020-11-24] MEDS: dexAMETHasone 4 MG TAB PO SCH (08:14)
[2020-11-24] MEDS: ASPIRIN 81 MG ECTAB PO SCH (08:14)
[2020-11-24] MEDS: CHOLECALCIFEROL 1,000 UNITS 25 MCG TAB PO SCH (08:14)
[2020-11-24] MEDS: ENALAPRIL MALEATE 10 MG TAB PO SCH (08:15)
[2020-11-24] MEDS: ZINC SULFATE 220 MG CAPSULE PO SCH (08:15)
[2020-11-24] MEDS: INSULIN ASPART 100 UNITS/ML 3 ML PEN SC SCH ×3 (08:28→17:00)
[2020-11-24] MEDS ORDERED: INSULIN HUMAN NPH SC SCH ×2 (09:00)
--- NOTE | 2020-11-24 11:20 | Pharmacy Report ---
Pharmacy Glycemic Short Note 2 - Date of Service November 24, 2020 - Glycemic Short BSG Results (Last 24 hours): 11/23/20 11/23/20 11/23/20 12:01 16:56 20:23 POC Glucose 201 H 220 H 257 H 11/24/20 07:45 POC Glucose 149 H OUTPATIENT ANTIDIABETIC REGIMEN: * Amaryl * HbA1c: 10.3% (11/17/20) ASSESSMENT: 11/24: * Pt received total 92 units of insulin yesterday; 30 units basal (15 units Lantus + 15 units NPH) and 62 units bolus * Fasting BSG today 149 mg/dl. No change in Lantus dose today. * Post prandial BSGs above 200 yesterday. Pt continues to be on PO Decadron which is covered by NPH. * NPH dose increased slightly. Also, Novolog parameters were tightened slightly today for better meal coverage. 11/23: * Pt received total 109 units of insulin yesterday; 45 units basal + 64 units bolus. * Fasting BSG was 135 mg/dl today. Continued basal insulin scale based on BSG for tonight. * Pt was hypoglycemic yesterday at dinner time. Most likely reason for this was because the IV decadron yesterday was changed to PO Decadron which causes less hyperglycemia than IV. The NPH dose was pro-actively decreased yesterday morning but this was probably not enough. Further, Novolog carb ratio was also really tight at 2. This was loosened yesterday. * NPH dose today was decreased by half this morning to prevent hypoglycemia. Lunch BSG trended up above 200 today but expect it to trend down this pm. 11/22: * BSGs yesterday of 161, 255, 194, 153 mg/dL, fasting BSG of 72 mg/dL * Received 121 units of insulin yesterday (40 units of NPH, 25 units of Lantus, and 56 units of prandial/correctional) * Steroids changed from IV to PO dexamethasone 6 mg daily * Will decrease basal insulin today in light of AM fasting BSG 11/21: * BSGs much improved yesterday, 78, 126, 107, and 150 mg/dL * Continue tight parameters with breakfast and lunch, loose parameters with dinner and HS * Received 112 units of insulin (40 units of NPH, 20 units of Lantus, and 52 units of prandial/correctional bolus) * Continues on dexamethasone 6 mg IV * Fasting BSG of 161 mg/dL this morning * Will increase Lantus today ~25% 11/20: * BSGs yesterday 135, 246, 203, and 90 mg/dL * Trend continues with elevated lunch/dinnertime BSGs and then lower BSGs at HS/overnight * Received 160 units of insulin (40 units of NPH, 35 units of Lantus, and 85 units of prandial/correctional bolus) * Will continue NPH at 0.4 unit/kg with dexamethasone * Given BSG trend, will maintain tight Novolog parameters with breakfast/lunch and loosen with dinner/HS * Fasting BSG of 78 mg/dL this morning - will decrease Lantus again today 11/17: * 60yo T2DM male with unknown degree of outpatient control - A1c pending. * Pt is maintained on Amarayl monotherapy - will hold this for admission and use SQ basal bolus insulin regimen * Pt with SEVERE hyperglycemia on admission secondary to illness (possibly poor outpatient control?), and steroids (dexamethasone 6mg IV Q24hrs for COVID). Pt received multiple IV bolus of insulin, SQ novolog boluses, and Lantus 30 units last night. Pt still with SEVERE hyperglycemia this AM. * Will start weight based NPH to cover DXM and add an IV insulin infusion for severe hyperglycemia. * Will stop IV insulin infusion when BSG < 180 x 2 AND IV insulin infusion rate < 1 unit/hr; infusion rates should decrease as SQ insulin kicks in PLAN FOR INPATIENT GLYCEMIC CONTROL: * Hold outpatient oral diabetes medications * Basal insulin - increase * NPH 20 units SC daily with PO dexamethasone * Lantus 0-15 units SC HS (see EHR for details) * Bolus insulin: tightened CF/CR * NovoLog per scale ACHS or Q6hrs while NPO * Goal Range: Low 110 mg/dL - High 140 mg/dL * Correction Factor w/ breakfast and lunch: 8 mg/dL/unit; correction Factor w/ dinner and HS: 15 mg/dL/unit * Nutritional / Prandial insulin per carb ratio of 1 unit per 2.5 grams CHO consumed w/ breakfast and lunch; 1 unit per 6 grams CHO consumed w/ dinner and HS PLAN FOR DISCHARGE: * HbA1c of 10.3% suggests poor outpatient glycemic control * A1c is greater than or equal to 10% consider triple therapy with metformin + basal insulin + (GLP1-RA OR prandial insulin). * Metformin XR 500mg PO daily with evening meal. Typically the XR formulation of metformin is better tolerated than the immediate release formulation. Continue to titrate metformin dosing upwards as recommended. Dosage increases should be made in increments of 500 mg weekly, up to 2,000 mg/day PO, given in divided doses. * B12 supplementation may be necessary with middle or intermediate school principal metformin * Patient will require insulin at discharge: doses to be determined once steroids discontinued * If insufficient data available prior to discharge suggest starting insulin glargine 20 units SC daily * Discontinue Amaryl if insulin initiated to decrease risk of hypoglycemia
--- NOTE | 2020-11-24 17:48 | Discharge Summary ---
Date of Service November 24, 2020 Admission HPI Per Admitting Provider This is a 60 yo M with PMHx of HTN, HLD, DM II who presents with severe cough, fever with max temp of 101, wheezing, shortness of breath which has progressively gotten worse. Pt reports he felt sick last night, and did not go to work on Wednesday. He had swab at an acute care clinic last Wednesday night and found positive on Wednesday morning. Since then he has used mucinex, tylenol, and didn't find any relief. He reports having poor appetite, and had some nausea and vomiting on Wednesday. He also reports having diarrhea x 2 days. He is drinking fluids without any difficulty. He reports did not get vaccinated because of all the information on the new and felt hesitant. He is unsure where he caught the virus from. Pt denies recent travel. His is currently symptomatic as well, and here in the ER for admission as well. Admission Exam Per Admitting Provider GENERAL: Alert and oriented x3. NAD, on 2L. HEENT: No pallor, no icterus. Pupils equal, round and reactive to light. Oral mucosa moist. NECK: No JVD, no neck masses. HEART: S1 and S2 heard. Regular rate and rhythm. No murmur, no gallop. RESPIRATORY SYSTEM: Normal AP diameter. No accessory muscle use. No wheezing, no crackles. ABDOMEN: Soft, bowel sounds present, nontender, no distention. CENTRAL NERVOUS SYSTEM: Alert and oriented x3. No facial droop. Speech is clear. Obeys simple commands. Moves extremities. EXTREMITIES: No edema, no erythema seen. Principal Diagnosis Acute respiratory failure secondary to Covid pneumonia Transaminitis-resolved Uncontrolled type 2 diabetes mellitis Discharge Exam CONSTITUTIONAL: WNWD, vitals as above, generally well-appearing EYES: normal conjunctivae, no scleral icterus ENT: external ear and nose normal, MMM NECK: trachea midline RESPIRATORY: clear to auscultation bilaterally, no crackles, rales or wheezes, normal respiratory effort CARDIOVASCULAR: regular rate and rhythm, S1 and 2 heard without murmurs, gallops or rubs, no JVD, no peripheral edema CHEST: inspection of chest was normal GASTROINTESTINAL: soft, nontender, nondistended. MUSCULOSKELETAL: strength 5/5 throughout, head is normocephalic and atraumatic, neck supple SKIN: warm and dry NEUROLOGIC: CN 2-12 grossly intact, normal cognition, normal speech, no tremor, no gross focal deficits. PSYCHIATRIC: alert cooperative and oriented to person, place and time. Discharge Data Allergies Allergy/AdvReac Type Severity Reaction Status Date / Time No Known Allergies Allergy Unverified 11/16/20 17:46 Consultations 11/16/20 19:16 ED Decision to Admit Stat Ordered Studies Laboratory Results WBC 14.63 K/uL (4.8-10.8) H 11/23/20 07:24 RBC 4.34 M/uL (4.7-6.1) L 11/23/20 07:24 Hgb 13.4 g/dL (14.0-18.0) L 11/23/20 07:24 Hct 37.7 % (42-52) L 11/23/20 07:24 MCV 86.9 fL (80-100) 11/23/20 07:24 MCH 30.9 pg (25-34) 11/23/20 07:24 MCHC 35.5 g/dL (32-36) 11/23/20 07:24 RDW Std Deviation 41.9 fL (36.4-46.3) 11/23/20 07:24 RDW Coeff of Topher 13.1 % (11.5-14.5) 11/23/20 07:24 Plt Count 389 K/uL (130-400) 11/23/20 07:24 MPV 9.6 fL (7.4-10.4) 11/23/20 07:24 Immature Gran % (Auto) 4.2 % 11/21/20 06:06 Neut % (Auto) 74.9 % 11/21/20 06:06 Lymph % (Auto) 9.5 % 11/21/20 06:06 Cedar % (Auto) 11.2 % 11/21/20 06:06 Eos % (Auto) 0.0 % 11/21/20 06:06 Baso % (Auto) 0.2 % 11/21/20 06:06 Neut # (Auto) 9.34 K/uL (1.4-6.5) H 11/21/20 06:06 Lymph # (Auto) 1.19 K/uL (1.2-3.4) L 11/21/20 06:06 Cedar # (Auto) 1.40 K/uL (0.11-0.59) H 11/21/20 06:06 Eos # (Auto) 0.00 K/uL (0-0.5) 11/21/20 06:06 Baso # (Auto) 0.02 K/uL (0-0.2) 11/21/20 06:06 Immature Gran # (Auto) 0.52 K/uL (0.00-0.02) H 11/21/20 06:06 RBC Morphology Unremarkable 11/16/20 16:00 D-Dimer 250 ug/L FEU (0-500) 11/18/20 22:20 Sodium 135 mmol/L (136-145) L 11/23/20 07:24 Potassium 4.4 mmol/L (3.5-5.1) 11/23/20 07:24 Chloride 107 mmol/L (98-107) 11/23/20 07:24 Carbon Dioxide 22 mmol/L (21-32) 11/23/20 07:24 Anion Gap 6.0 (3-11) 11/23/20 07:24 BUN 31 mg/dl (7-18) H 11/23/20 07:24 Creatinine 0.78 mg/dl (0.6-1.4) 11/23/20 07:24 Est Cr Clr Drug Dosing 118.9 ml/min 11/23/20 07:24 Est GFR ( Amer) 112.9 ml/min 11/23/20 07:24 Est GFR (Non-Af Amer) 97.4 ml/min 11/23/20 07:24 BUN/Creatinine Ratio 39.7 (10-20) H 11/23/20 07:24 Glucose 135 mg/dl (70-99) H 11/23/20 07:24 POC Glucose 227 mg/dl (70-99) H 11/24/20 16:54 Estimat Average Glucose 249 mg/dl 11/17/20 08:28 Hemoglobin A1c 10.3 % (4.5-5.6) H 11/17/20 08:28 Calcium 8.5 mg/dl (8.5-10.1) 11/23/20 07:24 Phosphorus 3.7 mg/dl (2.5-4.9) 11/23/20 07:24 Magnesium 2.0 mg/dl (1.8-2.4) 11/23/20 07:24 Iron 107 mcg/dl (35-175) 11/19/20 08:09 TIBC 179 mcg/dl (250-450) L 11/19/20 08:09 Transferrin 164 mg/dl (200-360) L 11/19/20 08:09 Transferrin % Sat 46 % (20-50) 11/19/20 08:09 Ferritin 1570.6 ng/ml (8-388) H 11/19/20 08:09 Total Bilirubin 0.4 mg/dl (0.2-1) 11/18/20 07:44 Direct Bilirubin 0.2 mg/dl (0-0.2) 11/17/20 08:28 AST 23 U/L (15-37) 11/22/20 05:58 ALT 66 U/L (12-78) 11/22/20 05:58 Alkaline Phosphatase 109 U/L (45-117) 11/18/20 07:44 Troponin I < 0.015 ng/ml (0-0.045) 11/16/20 16:00 C-Reactive Protein 2.00 mg/dl (0-0.29) H 11/23/20 07:24 NT-Pro-B Natriuret Pep 190 pg/ml (0-900) 11/19/20 08:09 Total Protein 5.9 gm/dl (6.4-8.2) L 11/18/20 07:44 Albumin 2.5 gm/dl (3.4-5.0) L 11/18/20 07:44 Globulin 3.4 gm/dl (2.5-4.0) 11/18/20 07:44 Albumin/Globulin Ratio 0.7 (0.9-2) L 11/18/20 07:44 Vitamin B12 > 2000 pg/ml (193-986) H 11/19/20 08:09 Folate 14.50 ng/ml (>5.38) 11/19/20 08:09 Beta-Hydroxybutyric Acd mg/dl (0.2-2.81) 11/16/20 16:00 Procalcitonin < 0.05 ng/ml (0-0.5) 11/23/20 07:24 Urine Color Yellow 11/17/20 08:14 Urine Appearance Clear (Clear) 11/17/20 08:14 Urine pH 5.0 (4.5-7.5) 11/17/20 08:14 Ur Specific [place] 1.029 (1.000-1.030) 11/17/20 08:14 Urine Protein 1+ (Negative) H 11/17/20 08:14 Urine Glucose (UA) 3+ (Negative) H 11/17/20 08:14 Urine Ketones 1+ (Negative) H 11/17/20 08:14 Urine Blood Negative (Negative) 11/17/20 08:14 Urine Nitrite Negative (Negative) 11/17/20 08:14 Urine Bilirubin Negative (Negative) 11/17/20 08:14 Urine Urobilinogen Negative (Negative) 11/17/20 08:14 Ur Leukocyte Esterase Negative (Negative) 11/17/20 08:14 Urine WBC (Auto) 1-5 /hpf (0-5) 11/17/20 08:14 Urine RBC (Auto) 0-4 /hpf (0-4) 11/17/20 08:14 U Hyaline Cast (Auto) 1-5 /lpf (0-5) 11/17/20 08:14 U Epithel Cells (Auto) 0-5 /lpf (0-5) 11/17/20 08:14 Urine Bacteria (Auto) Negative (Negative) 11/17/20 08:14 Stool Occult Bld Scrn Negative (Negative) 11/18/20 16:44 COVID-19 Eval Order Covid19 at [facility] 11/16/20 16:54 SARS-CoV-2 (PCR) POSITIVE (Negative) A* 11/16/20 16:54 Hepatitis C Ab Screen Neg (Neg) 11/17/20 08:28 Impressions Chest X-Ray 11/18/20 10:40 XR chest 1V portable CLINICAL HISTORY: covid pt, wbc trending up COMPARISON STUDY: Chest radiograph November 16, 2020. FINDINGS: Lung volumes are normal. There is no pneumothorax or pleural effusion. Cardiac size is normal. No evidence for pulmonary edema. There has been slight progression of bilateral airspace opacities. IMPRESSION: Slight progression of moderate bilateral airspace opacities consistent with viral pneumonia. ACT 112: Negative or not required by law. Electronically signed by: Sincere Carbone M.D. 11/18/2020 11:01 AM Diabetes Follow up Diabetes Follow-up Needed for HgbA1c >9% Hospital Course (1) Acute respiratory failure with hypoxia: (2) Pneumonia due to COVID-19 virus: (3) Elevated transaminase level: (4) DM II (diabetes mellitus, type II), controlled: (5) HTN (hypertension): The patient is a 60-year-old male who presented with acute respiratory failure secondary to covid pneumonia. He completed 5 days of remdesivir therapy and continued on decadron each day. He continued to prone and use supportive measures such as nebulized bronchodilators and incentive spirometry. Diarrhea resolved and electrolytes were replaced as needed. He was discharged after nine days without the need for oxygen supplementation. At time of discharge, he was hemodynamically stable and afebrile. He was asymptomatic and oxygenating well on room air. He was sent home in stable condition with close primary care follow-up recommended. Of note, he is an uncontrolled diabetic with a HbA1C of 10.1 this admission. Close primary care follow-up is recommended to adjust his treatment regimen for goal HbA1C<7 in 3-6 months. He met with the diabetic nurse educator who reviewed home blood glucose values and the meaning of his A1C result. Diabetes basics were also reviewed. Although once daily Lantus was considered, in setting of steroid-induced hyperglycemia from treatment of covid, this was considered too much to change at this time. A transaminitis was also seen, likely secondary to covid infection, and this resolved to normal levels prior to discharge. Total Time Total Time Spent Total Time Spent (In Minutes): 60 Discharge Plan Discharge Items Patient Disposition: Home - Self-Care Reason For Visit: COVID-19 PNEUMONIA Discharge Diagnosis: Acute respiratory failure secondary to Covid pneumonia Transaminitis-resolved Uncontrolled type 2 diabetes mellitis Condition on Discharge: Good Activity: Resume your previous activity Non-emergency contact: Primary Care Provider Call non-emergency contact if: you have any medication questions, your symptoms worsen, your pain is not controlled, your pain is worsening, your pain is unusual for you, your pain is concerning for you and you have a fever Follow-up/Referrals: Quentin Andera MD [Primary Care Provider] - Diet: Carb Consistent or DM2 Addtl Attending Provider Instructions: Please take all medications as instructed on discharge as below. As discussed your blood sugar is out of control with a hemoglobin A1c 10.3. Your goal hemoglobin A1c is less than 7. Long-term side effects of uncontrolled glucose include nerve damage, eye damage, damage to your kidneys, and difficulty with digestion among others. You also have a higher risk of cardiovascular disease. Therefore, getting your blood sugar under control and at goal is a top priority. Please work with your primary care physician within the next 1 to 2 weeks regarding a new treatment plan. Typically, patients who have a hemoglobin A1c greater than 8 should be considered for long-acting insulin in addition to pills to help get them to goal. Please discuss this further with your primary care doctor upon follow-up. Please continue to prone as able while recovering at home. Please observe recommended isolation instructions per [facility] including home isolation for at least 10 days after symptom onset, coming off isolation only if you are asymptomatic and afebrile for least 24 hours. Please follow-up with your primary care doctor within 1 week of discharge to ensure you are still doing well after going home. It may be prudent to repeat a chest xray in 4 weeks to ensure complete resolution of pneumonia. It was a pleasure taking care of you! Please call if you have any questions or problems. You can reach a [facility] hospitalist on duty at [facility] 24 hours a day by calling [phone]. Take care of yourself. Theodora Jane DO [facility] Hospitalist Pending Studies at Discharge: No Stand-Alone Forms: [facility] Medications and DC Order Prescriptions: Continued metformin 500 mg tablet 500 mg PO BID RF: 0 aspirin 81 mg tablet,delayed release (DR/EC) 81 mg PO DAILY RF: 0 glimepiride 2 mg tablet 2 mg PO DAILY RF: 0 ramipril 5 mg capsule 5 mg PO DAILY RF: 0 Discharge Orders: Discharge Order (Routine); Ordered 11/24/20 Ordered By: Theodora Carrington/Other Patient Handouts: A1C, Managing Type 2 Diabetes Admission Data Admit Date/Time: 11/16/20 18:51 Attending Provider: Theodora Jane Admit Provider: Adam Alas Primary Care Provider: Quentin Andrea Other Providers: Adam Alas Other Interventions: Discharge Summary Assessment (RN) Last Done: 11/24/20 17:52
[2020-11-24] MEDS ORDERED: INSULIN GLARGINE SOLOSTAR 100 UNITS/ML 3 ML PEN SC SCH (21:00)
== END 2020-11-24 21:07 | disposition home or self-care (01) | DRG 177 ==
LOC: ED 15:38 → SUATTDRO 18:51 → 2N 18:51
DX: Z79.82 Long term (current) use of aspirin; U07.1 COVID-19; D64.9 Anemia, unspecified; Z79.84 Long term (current) use of oral hypoglycemic drugs; E87.1 Hypo-osmolality and hyponatremia; Z51.81 Encounter for therapeutic drug level monitoring; E11.65 Type 2 diabetes mellitus with hyperglycemia; Z79.899 Other long term (current) drug therapy; J96.01 Acute respiratory failure with hypoxia; I10 Essential (primary) hypertension; R74.01 Elevation of levels of liver transaminase levels; R19.7 Diarrhea, unspecified; J12.82 Pneumonia due to coronavirus disease 2019